=== PATIENT | female | born 1955 | race Caucasian/White ===

== ENCOUNTER → 2020-11-01 14:19 | Outpatient (CLI) | payer MEDICARE, MEDICAID, SELFPAY ==
[2020-11-01 14:31] LABS: Basophils # 0.1 K/mm3 (0-0.2); Basophils % 0.5 % (0.1-2.0); Eosinophils # 0.2 K/mm3 (0.0-0.4); Eosinophils % 1.6 % (0.1-12.0); Hemoglobin 11.5 g/dL (12.2-16.2); Lymphocytes # 1.7 K/mm3 (0.7-4.5); Mean Corpuscular HGB Conc 31.2 g/dL (31.8-35.4); Mean Corpuscular Hemoglobin 26.7 pg (27.0-31.2); Mean Corpuscular Volume 85.6 fl (81-99); Mean Platelet Volume 9.4 fl (7.4-10.4); Monocytes # 0.5 K/mm3 (0.1-1.0); Monocytes % 4.9 % (1.7-9.3); Platelet Count 402 K/mm3 (142-424); Red Blood Count 4.32 M/mm3 (4.20-5.40); Red Cell Distribution Width 15.8 % (11.5-17.5); White Blood Count 10.4 K/mm3 (4.8-10.8)
[2020-11-01 14:54] LABS: Chloride 101 mmol/L (98-107); Potassium 5.2 mmoL/L (3.5-5.1); Sodium 141 mmol/L (136-145)
[2020-11-01 14:56] LABS: Alanine Aminotransferase 21 U/L (12-78); Aspartate Amino Transferase 24 U/L (14-36); Blood Urea Nitrogen 22 mg/dl (7-17); Estimated Glomerular Filt Rate 101 ml/min (>60); GFR (African American) 122 ML/MIN (>60)
[2020-11-01 14:57] LABS: Albumin Level 4.3 g/dl (3.5-5.0); Albumin/Globulin Ratio 1.3 (1.1-1.8); Alkaline Phosphatase 158 U/L (38-126); Anion Gap 14.2 mEq/L (5-15); Bilirubin,Total 0.3 mg/dl (0.2-1.3); Calcium 9.9 mg/dl (8.4-10.2); Carbon Dioxide 31 mmol/L (22.0-30.0); Chol/HDL Ratio 4.1 (1-3.5); Cholesterol 228 mg/dl (140-200); Globulin 3.2 g/dL (1.3-3.2); Glucose 117 mg/dl (74-100); HDL Cholesterol 56 mg/dl (40-60); Total Protein,Serum 7.5 g/dl (6.3-8.2); Triglycerides 308 mg/dl (30-150); VLDL Cholesterol 62 mg/dL (0-40)
[2020-11-01 15:05] LABS: C-Reactive Protein 59.2 mg/L (0-4); Erythrocyte Sedimentation Rate 73 mm/hr (0-30)
[2020-11-01 15:09] LABS: Direct LDL Cholesterol 113.97 mg/dL (100-129)
[2020-11-01 15:17] LABS: T4 (Thyroxine) 9.3 ug/dl (5.53-11.0)
[2020-11-01 15:29] LABS: Thyroid Stimulating Hormone 0.58 uIU/mL (0.465-4.68)
[2020-11-05 00:05] LABS: Anti-Centromere B Antibodies <0.2 AI (0.0-0.9); Anti-Jo-1 <0.2 AI (0.0-0.9); Anti-Smith Antibody <0.2 AI (0.0-0.9); Antichromatin Antibodies <0.2 AI (0.0-0.9); Antiscleroderma-70 Antibodies <0.2 AI (0.0-0.9); RNP Antibodies <0.2 AI (0.0-0.9); Sjogren's Anti-SS-A <0.2 AI (0.0-0.9); Sjogren's Anti-SS-B <0.2 AI (0.0-0.9)
[2020-11-05 15:26] LABS: Anti-DNA (DS) Ab Qn <1 IU/mL (0-9)
== END ==
PROVIDERS: Visit Provider Family Medicine
DX: F39 Unspecified mood [affective] disorder (principal); M15.4 Erosive (osteo)arthritis; E78.5 Hyperlipidemia, unspecified
CPT/HCPCS: 80053; 80061; 84436; 84443; 85025; 85651; 86140; 86225; 86235

== ENCOUNTER → 2021-10-03 16:00 | Outpatient (CLI) | payer MEDICARE, MEDICAID, SELFPAY ==
[2021-10-03 14:02] LABS: Basophils # 0.1 K/mm3 (0-0.2); Basophils % 1.1 % (0.1-2.0); Eosinophils # 0.1 K/mm3 (0.0-0.4); Eosinophils % 0.7 % (0.1-12.0); Hematocrit 44.3 % (37.0-47.0); Hemoglobin 13.8 g/dL (12.2-16.2); Lymphocytes # 2.2 K/mm3 (0.7-4.5); Lymphocytes % 20.4 % (10-50); Mean Corpuscular HGB Conc 31.1 g/dL (31.8-35.4); Mean Corpuscular Hemoglobin 28.2 pg (27.0-31.2); Mean Corpuscular Volume 90.5 fl (81-99); Mean Platelet Volume 10.1 fl (7.4-10.4); Monocytes # 0.6 K/mm3 (0.1-1.0); Monocytes % 5.8 % (1.7-9.3); Neutrophils # 7.7 K/mm3 (1.8-7.8); Platelet Count 494 K/mm3 (142-424); Red Blood Count 4.89 M/mm3 (4.20-5.40); Red Cell Distribution Width 15.6 % (11.5-17.5); White Blood Count 10.7 K/mm3 (4.8-10.8)
[2021-10-03 14:46] LABS: Anion Gap 16.9 mEq/L (5-15); Blood Urea Nitrogen 21 mg/dl (7-17); Calcium 10.2 mg/dl (8.4-10.2); Carbon Dioxide 28 mmol/L (22.0-30.0); Chloride 99 mmol/L (98-107); Chol/HDL Ratio 5.3 (1-3.5); Cholesterol 304 mg/dl (140-200); Estimated Glomerular Filt Rate 124 ml/min (>60); GFR (African American) 150 ML/MIN (>60); Glucose 126 mg/dl (74-100); HDL Cholesterol 57 mg/dl (40-60); Potassium 4.9 mmoL/L (3.5-5.1); Sodium 139 mmol/L (136-145); Triglycerides 278 mg/dl (30-150); VLDL Cholesterol 56 mg/dL (0-40)
[2021-10-03 14:56] LABS: Direct LDL Cholesterol 196.05 mg/dL (100-129)
== END ==
PROVIDERS: Visit Provider Family Medicine
DX: E78.5 Hyperlipidemia, unspecified (principal); F39 Unspecified mood [affective] disorder
CPT/HCPCS: 80048; 80061; 85025

== ENCOUNTER → 2022-09-04 09:00 | Outpatient (CLI) | payer MEDICARE, MEDICAID, SELFPAY ==
[2022-09-04 15:20] LABS: Basophils # 0.1 K/mm3 (0-0.2); Basophils % 0.6 % (0.1-2.0); Eosinophils # 0.1 K/mm3 (0.0-0.4); Hematocrit 40.7 % (37.0-47.0); Lymphocytes # 1.5 K/mm3 (0.7-4.5); Lymphocytes % 13.6 % (10-50); Mean Corpuscular HGB Conc 29.6 g/dL (31.8-35.4); Mean Corpuscular Hemoglobin 26.1 pg (27.0-31.2); Mean Corpuscular Volume 88.2 fl (81-99); Mean Platelet Volume 10.1 fl (7.4-10.4); Monocytes # 0.7 K/mm3 (0.1-1.0); Monocytes % 5.8 % (1.7-9.3); Platelet Count 445 K/mm3 (142-424); Red Blood Count 4.61 M/mm3 (4.20-5.40); Red Cell Distribution Width 16.9 % (11.5-17.5); White Blood Count 11.4 K/mm3 (4.8-10.8)
[2022-09-04 15:34] LABS: Chloride 100 mmol/L (98-107); Potassium 4.5 mmoL/L (3.5-5.1); Sodium 140 mmol/L (136-145)
[2022-09-04 15:37] LABS: Alanine Aminotransferase 21 U/L (12-78); Albumin Level 4.1 g/dl (3.5-5.0); Albumin/Globulin Ratio 1.3 (1.1-1.8); Alkaline Phosphatase 145 U/L (38-126); Anion Gap 15.5 mEq/L (5-15); Aspartate Amino Transferase 24 U/L (14-36); Bilirubin,Total 0.4 mg/dl (0.2-1.3); Blood Urea Nitrogen 15 mg/dl (7-17); Carbon Dioxide 29 mmol/L (22.0-30.0); Cholesterol 208 mg/dl (140-200); Estimated Glomerular Filt Rate 124 ml/min (>60); GFR (African American) 150 ML/MIN (>60); Globulin 3.2 g/dL (1.3-3.2); Total Protein,Serum 7.3 g/dl (6.3-8.2); Triglycerides 215 mg/dl (30-150); VLDL Cholesterol 43 mg/dL (0-40)
[2022-09-04 15:38] LABS: Calcium 9.4 mg/dl (8.4-10.2); Chol/HDL Ratio 4.5 (1-3.5); Glucose 119 mg/dl (74-100); HDL Cholesterol 46 mg/dl (40-60)
[2022-09-04 15:50] LABS: Direct LDL Cholesterol 101.27 mg/dL (100-129)
[2022-09-04 15:53] LABS: 25-OH Vitamin D, Total 17.5 ng/mL (30-100)
[2022-09-04 16:08] LABS: Thyroid Stimulating Hormone 0.68 uIU/mL (0.465-4.68)
[2022-09-04 16:10] LABS: Hemoglobin A1C 6.3 % (4.0-6.0)
== END ==
PROVIDERS: PCP Family Medicine; Visit Provider Family Medicine
DX: I10 Essential (primary) hypertension (principal); E78.5 Hyperlipidemia, unspecified; E55.9 Vitamin D deficiency, unspecified; R73.09 Other abnormal glucose
CPT/HCPCS: 80053; 80061; 82306; 83036; 84443; 85025

== ENCOUNTER → 2023-07-13 08:32 | Outpatient (CLI) | payer MEDICARE, MEDICAID, SELFPAY ==
[2023-07-13 20:12] LABS: Chloride 104 mmol/L (98-107); Potassium 4.7 mmoL/L (3.5-5.1); Sodium 139 mmol/L (136-145)
[2023-07-13 20:14] LABS: Blood Urea Nitrogen 19 mg/dl (7-17)
[2023-07-13 20:15] LABS: Alanine Aminotransferase 27 U/L (12-78); Albumin Level 4.7 g/dl (3.5-5.0); Albumin/Globulin Ratio 1.3 (1.1-1.8); Alkaline Phosphatase 163 U/L (38-126); Anion Gap 15.7 mEq/L (5-15); Aspartate Amino Transferase 32 U/L (14-36); Bilirubin,Total 0.3 mg/dl (0.2-1.3); Carbon Dioxide 24 mmol/L (22.0-30.0); Estimated Glomerular Filt Rate 100 ml/min (>60); GFR (African American) 121 ML/MIN (>60); Globulin 3.5 g/dL (1.3-3.2); Total Protein,Serum 8.2 g/dl (6.3-8.2)
[2023-07-13 20:16] LABS: Calcium 9.7 mg/dl (8.4-10.2); Glucose 108 mg/dl (74-100)
[2023-07-13 20:45] LABS: Thyroid Stimulating Hormone 0.65 uIU/mL (0.465-4.68)
[2023-07-13 21:11] LABS: Hemoglobin A1C 6.1 % (4.0-6.0)
== END ==
PROVIDERS: PCP Family Medicine; Visit Provider Family Medicine
DX: E11.9 Type 2 diabetes mellitus without complications (principal); G89.29 Other chronic pain; M54.9 Dorsalgia, unspecified
CPT/HCPCS: 80053; 83036; 84443

== ENCOUNTER 2024-12-29 01:22 | Outpatient (CLI) | payer MEDICARE, SELFPAY ==
[2024-12-29 18:50] LABS: Basophils # 0.1 K/mm3 (0-0.2); Basophils % 0.5 % (0.1-2.0); Eosinophils # 0.3 Kmm3 (0.0-0.4); Eosinophils % 2.8 % (0.1-12.0); Hematocrit 38.1 % (37.0-47.0); Immature Granulocytes # 0.02 10^3uL; Immature Granulocytes % 0.2 %; Lymphocytes # 2.3 K/mm3 (0.7-4.5); Lymphocytes % 24.1 % (10-50); Mean Corpuscular HGB Conc 28.9 g/dL (31.8-35.4); Mean Corpuscular Hemoglobin 26.3 pg (27.0-31.2); Mean Corpuscular Volume 90.9 fl (81-99); Mean Platelet Volume 10.8 fl (7.4-10.4); Monocytes # 0.6 K/mm3 (0.1-1.0); Monocytes % 6.2 % (1.7-9.3); Neutrophils # 6.2 K/mm3 (1.8-7.8); Neutrophils % 66.2 % (37.0-80.0); Nucleated Red Blood Cells # 0 10^3/uL; Nucleated Red Blood Cells % 0 %; Platelet Count 455 K/mm3 (142-424); Red Blood Count 4.19 M/mm3 (4.20-5.40); Red Cell Distribution Width 15.9 % (11.5-17.5); Red Cell Distribution Width-SD 52.6 fL; White Blood Count 9.3 K/mm3 (4.8-10.8)
[2024-12-29 19:22] LABS: Alanine Aminotransferase 15 U/L (12-78); Albumin Level 4.2 g/dl (3.5-5.0); Albumin/Globulin Ratio 1.6 (1.1-1.8); Alkaline Phosphatase 120 U/L (38-126); Anion Gap 10.3 mEq/L (5-15); Aspartate Amino Transferase 18 U/L (14-36); Bilirubin,Total 0.2 mg/dl (0.2-1.3); Blood Urea Nitrogen 33 mg/dl (7-17); Calcium 9.4 mg/dl (8.4-10.2); Carbon Dioxide 27 mmol/L (22.0-30.0); Chloride 106 mmol/L (98-107); Chol/HDL Ratio 3.6 (1-3.5); Cholesterol 151 mg/dl (140-200); Estimated Glomerular Filt Rate 49 ml/min (>60); GFR (African American) 60 ML/MIN (>60); Globulin 2.7 g/dL (1.3-3.2); Glucose 102 mg/dl (74-100); HDL Cholesterol 42 mg/dl (40-60); Potassium 4.3 mmoL/L (3.5-5.1); Sodium 139 mmol/L (136-145); Total Protein,Serum 6.9 g/dl (6.3-8.2); Triglycerides 175 mg/dl (30-150); VLDL Cholesterol 35 mg/dL (0-40)
[2024-12-29 19:35] LABS: Direct LDL Cholesterol 75.64 mg/dL (100-129)
[2024-12-29 20:10] LABS: HIV Combo NEGATIVE (Negative)
[2024-12-29 20:13] LABS: Hepatitis C Ab Qual. W/ RFX NEGATIVE (Negative)
== END 2024-12-29 23:59 | disposition home or self-care (01) ==
LOC: LAB.DROPOF 12-30 12:59
PROVIDERS: PCP Family Medicine; Visit Provider Family Medicine
DX: E78.5 Hyperlipidemia, unspecified (principal); I10 Essential (primary) hypertension; Z11.4 Encounter for screening for human immunodeficiency virus [HIV]; Z11.59 Encounter for screening for other viral diseases
CPT/HCPCS: 80053; 80061; 84443; 85025; 86803; 87389

== ENCOUNTER 2025-03-01 11:02 | Outpatient (CLI) | payer MEDICARE, SELFPAY ==
[2025-03-01 22:13] LABS: Hemoglobin A1C 6.7 % (4.0-6.0)
--- OUTSIDE RECORDS SUMMARY | 2025-03-02 12:51 | XMS_ITS | Encounter Summary ---
Author Organization [employer] ([place], [place], [place], [place]) Address [address] [place] [address] Care Team Providers Care Cement Finishing Supervisor Name Role Phone Buck Torres MD Primary Care Provider [phone] Encounter Details Date Type Department Care Team (Late st Contact Info) Description 02/02/2023 Outside Orders [facility] [place] Admitting [address] [place] [address] Flex Rodriguez MD [address] [place], [place] [id number] History of total knee replacement, bilateral (Primary Dx) Social History Tobacco Use Types Packs/Day Years Used Date Smoking Tobacco: Never Passive Smoke Exposure: Never Smokeless Tobacco: Never Alcohol Use Standard Drinks/Week Comments Never 0 (1 standard drink = 0.6 oz pur e alcohol) Comments Unknown Sex and Gender Information Value Date Recorded Sex Assigned at Not on file Legal Sex Female 10:57 AM CDT Gender Identity Not on file Sexual Orientation Not on file COVID-19 Exposure Response Date Recorded In the last 10 days, have yo u been in contact with someone who was confirmed or suspected to have Coronavirus/COVID-19? No / Unsure 02/02/2023 4:10 PM EDT documented as of this encounter Plan of Treatment Not on file documented as of this encounter Results * (ABNORMAL) D-dimer (02/02/2023 4:24 PM EDT) D-Dimer, Quant ([facility]) 3,428.85( H) <=500.00 ng/mL FEU 02/02/2023 5:07 PM EDT [facility] Comment: A normal D-dimer result <500 ng/mL (FEU) has a negative predictive value of approximately 95% for the exclusion of acute pulmonary embolism (PE) or deep vein thrombosis when there is low or moderate pretest PE probability. D-dimer Normal Rates First trimester: 50-950 ng/mL (FEU) Second trimester: 302-1290 ng/mL (FEU) Third trimester: 130-1700 ng/mL (FEU) Blood Venipuncture / Unknown 02/02/2023 4:24 PM EDT 02/02/2023 4:24 PM EDT Flex Rodriguez MD LAB BLOOD ORDERABLES Final Re sult Performing Organization Address [facility] Co de Phone Number [facility] [address] [place] [address] * (ABNORMAL) C-Reactive Protein (02/02/2023 4:24 PM EDT) CRP 5.80(H) 0.20 - 0.90 mg/dL 02/02/2023 4:52 PM EDT [facility] Blood Venipuncture / Unknown 02/02/2023 4:24 PM EDT 02/02/2023 4:24 PM EDT Flex Rodriguez MD LAB BLOOD ORDERABLES Final Re sult Performing Organization Address City/[facility]/ZIP Co de Phone Number [facility] [address] [phone] * (ABNORMAL) Sedimentation rate (02/02/2023 4:24 PM EDT) Sed Rate 98(H) 0 - 30 mm/HR 02/02/2023 6:37 PM EDT [facility] Hematocrit 37.7 35.0 - 47.0 % 02/02/2023 6:37 PM EDT [facility] Blood Venipuncture / Unknown 02/02/2023 4:24 PM EDT 02/02/2023 4:24 PM EDT us Flex Rodirguez MD LAB BLOOD ORDERABLES Final Re sult [facility] [address] [place] [address], [facility] [phone] documented in this encounter Visit Diagnoses Diagnosis History of total knee replacement, bilateral- Primary documented in this encounter Care Teams Cement Finishing Supervisor Relationship Specialty Start Date End Date Buck Torres MD [address] [place] [address] PCP - General Family Medicine 01/23/23 documented as of this encounter
--- OUTSIDE RECORDS SUMMARY | 2025-03-02 12:51 | XMS_ITS | Clinical Summary ---
Author Organization [employer] ([place], [place], [place], [place]) Address [address] [place] [address] Care Team Providers Care Tonnage Compilation Clerk Name Role Phone Buck Torres MD Primary Care Provider [phone] Allergies Active Allergy Reactions Criticality Noted Date Comments Cilastatin 02/02/2023 Febuxostat 02/02/2023 Lamotrigine 02/02/2023 Medications ALPRAZolam (XANAX) 0.5 MG tablet Take 1 tablet (0.5 mg total) by mouth 3 (three) times daily as needed. Max Daily Amount: 1.5 mg 3 Active amLODIPine (NORVASC) 5 MG tablet Take 1 tablet (5 mg total) by mouth in the morning. 3 Active cyclobenzaprine (FLEXERIL) 10 MG tablet Take 1 tablet (10 mg total) by mouth. 3 Active dorzolamide-martha oloL (COSOPT) 22.3-6.8 mg/mL ophthalmic solution 1 drop in the morning and 1 drop before bedtime. 3 Active HYDROcodone-sita taminophen (NORCO 7.5-325) 7.5-325 mg per tablet Take 1 tablet by mouth every 8 (eight) hours as needed. Max Daily Amount: 3 tablets 3 Active lisinopriL (PRINIVIL,ZESTR IL) 40 MG tablet Take 1 tablet (40 mg total) by mouth in the morning. 3 Active Livalo 4 mg Tab Take by mouth daily. 3 Active venlafaxine (EFFEXOR-XR) 150 MG 24 hr capsule Take 1 capsule (150 mg total) by mouth in the morning. 3 Active Ventolin HFA 90 mcg/actuation inhaler 2 puffs every 4 (four) hours as needed. 3 Active fluticasone-ume clidin-vilanter (Trelegy Ellipta) 200-62.5-25 mcg DsDv Trelegy Ellipta 200 mcg-62.5 mcg-25 mcg powder for inhalation INHALE ONE (1) INHALATION EVERY DAY Active Family History Medical History Relation Name Comments High blood pressure Other Osteoporosis Other Relation Name Status Comments Other Social History Tobacco Use Types Packs/Day Years Used Date Smoking Tobacco: Never Passive Smoke Exposure: Never Smokeless Tobacco: Never Tobacco Cessation:Counseling Given: Not Answered Alcohol Use Standard Drinks/Week Comments Never 0 (1 standard drink = 0.6 oz pur e alcohol) Food Insecurity Answer Date Recorded Food run out past 12 months Not on file 08/25 Food did not last past 12 months Not on file 09/12/2023 Employment Answer Date Recorded Help finding and keeping a job Not on file 0 09/12/2023 Family and Community Support Answer Elijah e Recorded Help with Day to Day Activities Not on file 09/12/2023 Feeling Lonely or Isolated Not on file 09/12 Educational Attainment Answer Date Gal rded Speak language other than Icelandic at home Not on file 09/12/2023 Want help with school or training Not on file 09/12/2023 Substance Use Answer Date Recorded Used prescription meds for non-medical reasons N ot on file 09/12/2023 Used illegal drugs past 12 months Not on file 09/12/2023 Comments Unknown Sex and Gender Information Value Date Recorded Sex Assigned at Not on file Legal Sex Female 10:57 AM CDT Gender Identity Not on file Sexual Orientation Not on file Last Filed Vital Signs Vital Sign Reading Time Taken Comments Blood Pressure 118/79 02/02/2023 2:35 PM EDT Pulse 111 02/02/2023 2:35 PM EDT Temperature - - Respiratory Rate - - Oxygen Saturation - - Inhaled Oxygen Concentration - - Weight 89.4 kg (197 lb) 02/02/2023 2:35 PM EDT Height 154.9 cm (5' 1 ) 02/02/2023 2:35 PM EDT Body Mass Index 37.22 02/02/2023 2:35 PM EDT Plan of Treatment Health Maintenance Due Date Last Done Comments CT Colonography 1956 Colonoscopy 1956 Colorectal Cancer Screening 1956 DXA SCAN 1956 FOBT/FIT 1956 Fit-DNA (Cologuard) 1956 Sigmoidoscopy 1956 Depression Screening (12+) 1968 Hepatitis C Screening 1974 Breast Cancer Screening 1996 Shingles Vaccine (Zoster) (1 of 2) 2006 DTAP/TDAP/TD VACCINES (2 - T d or Tdap) 06/24/2014 06/24/2004 Medicare Initial AWV [id number] 08/25/2022 Pneumococcal 50+ years (2 of 2 - PCV) 05/15/2023 05/15/2022, 07/12/2020 Tobacco Cessation Counseling and Screening (12+) 02/03/2024 02/02/2023 COVID-19 VACCINE (5 - 2023-2 5 season) 2024 12/13/2021, 06/30/2021, 10/08/2020, Additional history exists Falls Risk Screening 08/24/2024 Influenza Vaccine (#1) 2025 Respiratory Syncytial Virus (RSV) Adult or (1 - 1-dose 75+ series) 12/15/2031 [facility] Care Teams Tonnage Compilation Clerk Relationship Specialty Start Date End Date Buck Torres MD [address] [place] [address] PCP - General Family Medicine 01/23/23
--- OUTSIDE RECORDS SUMMARY | 2025-03-02 12:51 | XMS_ITS | Data Portability ---
Author Organization [facility] Address [address] [place] [address] Assessment Encounter Date Assessment Date Assessment LastModified by Organization Details LastModified Time 03/10/2019 03/10/2019 *Pain Shot: Dr. [facility] [phone] [email or web address] Not available 03/10/2019 11:04:04 Plan of Treatment Reminders Order Date Submit Date Provider Last Modified By Organization Details Last Modified Time Details Appointments None recorded. Lab CBC w/ auto diff 2019 020 DWIGHT [facility], [address], [place] [address], [place], [address], 0 05:01:06 HbA1c (hemoglob in A1c), blood 2019 020 DWIGHT [facility], [address], [place] [address], [place], [address], 0 05:01:04 lipid panel, serum 2019 020 DWIGHT [facility], [address], [place] [address], [place], [address], 0 05:01:04 rf (rheumato id factor), serum 2018 019 [email or web address] [facility], [address], [place], [place], [address], 9 08:04:08 CBC w/ auto diff 2018 019 HAMEL [facility], [address], [place] [address], [place], [address], 9 15:08:04 C reactive protein, QN, serum or plasma 2018 019 [email or web address] [facility], [address], [place] [address], [place], [address], 9 08:04:08 unlisted lab - ESR luz+LLOYD+r f qn+CRP+cc p(I...-33 [id number] 2018 019 HAMEL [facility], [address], [place] [address], [place], [address], 9 15:08:03 BMP, serum or plasma 2018 019 HAMEL [facility], [address], [place], [place], [address], 9 15:08:04 LLOYD (antinucl ear antibodie s) titer + pattern, ifa, serum 2018 019 HAMEL [facility], [address], [place], [place], [address], 9 15:08:06 PT/PTT, plasma 2018 019 [facility], [address], [place], [place], [address], 9 15:08:05 ccp (cyclic citrullin ated peptide) iga+igg, serum 2018 019 [place] [address] [facility], [address], [place], [place], [address], 9 08:04:08 Referral pain managemen t referral - Takes Hydrocodo ne/Acetam inophen for pain. Has been seeing Dr. torres, traveling is too far. Wants a provider closer to home. [facility], [address], [place] [address], [place], [address], 4 10:38:33 orthopedi c referral 2019 020 DWIGHT [facility], [address] , [place], [address], 0 16:12:42 Procedures None recorded. Surgeries None recorded. Imaging XR, lumbar spine 2019 020 DWIGHT [facility] (Centralized Scheduling), [address], [place], [address], 0 14:46:00 XR, knee, 3 view 2019 020 DWIGHT [facility] (Centralized Scheduling), [address], [place], [address], 0 14:45:17 XR, wrist, 3 or more view 2019 020 DWIGHT Chapman (Centralized Scheduling), [address], [place], [address], 0 14:44:13 XR, hand, 3 or more view 2019 020 DWIGHT Chapman (Centralized Scheduling), [address], [place], [address], 0 14:43:48 Medication Orders Tylenol-C odeine #4 300 mg-60 mg tablet 2018 [address], [address], 0 21:27:53 Soma 350 mg tablet [address], [address], 0 13:10:23 alprazola m 1 mg tablet 2018 [email or web address], [address], 0 21:27:40 ketorolac 60 mg/2 mL intramusc ular solution 2018 019 [email or web address] Not available 0 21:28:59 hydrocodo ne 10 mg-acetam inophen 325 mg tablet [address], [address], 0 13:07:39 alprazola m 1 mg tablet 2018 [address], [address], 0 21:27:40 alprazola m 1 mg tablet 2018 [address], [address], 0 21:27:40 hydrocodo ne 10 mg-acetam inophen 325 mg tablet [address], [address], 0 13:07:39 Patient TargetsNo targets recorded. Patient Instructions Encounter Date Encounter Id Patient Instructions Last Modified By Organization Details Last Modified Time 03/18/2024 [id number] learning about healthy weight Not available 03/18/2024 13:28:20 body mass index: care instructions Not available 03/18/2024 13:28:20 medical record request* [email or web address] Not available 07/08/2024 14:11:33 If you have any questions or concerns, call pp or seek medical attention. Not available 03/18/2024 13:40:09 Reason for Referral Orthopedic Referral for Knee pain Bilateral knee pain. Hx of bilateral arthroplasty. XRS showed bilaterak knee effusions. Referring Physician: Eric Thakur, [facility], Encounter Date: 12/15/2019 Pain Management Referral for Chronic pain Takes Hydrocodone/Acetaminophen for pain. Has been seeing Dr. torres, traveling is too far. Wants a provider closer to home. Referring Physician: Ni Farah, [facility], Encounter Date: 03/18/2024 Results Created Date Observation Date Name Description Value Unit Range Abnormal Flag Note LastModifiedBy Organization Detail LastModifiedTime 02/12/20 19 02/12/2019 infla mmati on panel , serum or plasm a RA latex turbid. <10.0 IU/mL 0.0-13 .9 Not Available [facility] ([facility]) [address] [place], [address], 02/14/2019 15:08:03 02/12/20 19 02/12/2019 infla mmati on panel , serum or plasm a C-reactive protein, quant 3 mg/L 0-10 Ple ase note refer ence inter chip lozoya e Not Available [facility] ([facility]) [address] [place], [address], 02/14/2019 15:08:03 02/12/20 19 02/12/2019 infla mmati on panel , serum or plasm a sedimentatio n rate-westerg bhavya 63 mm/HR 0-40 above high normal Not Available [facility] ([facility]) [address] [place], [address], 02/14/2019 15:08:03 02/12/20 19 02/13/2019 infla mmati on panel , serum or plasm a ccp antibodies IgG/IgA 4 units 0-19 Negat john <20 Weak posit john 20 - 39 Moder ate posit john 40 - 59 Stron g posit john >59 Not Available [facility] ([facility]) [address] [place], [address], 02/14/2019 15:08:03 02/12/20 19 02/14/2019 infla mmati on panel , serum or plasm a LLOYD direct Negati ve negati ve Not Available [facility] ([facility]) [address] [place], [address], 02/14/2019 15:08:03 02/12/20 19 02/12/2019 CBC w/ auto diff WBC 11.0 x10e3 /uL 3.4-10 .8 above high normal Not Available [facility] ([facility]) [address] [facility], [place], [address], 02/14/2019 15:08:03 02/12/20 19 02/12/2019 CBC w/ auto diff RBC 5.11 x10e6 /uL 3.77-5 .28 Not Available [facility] ([facility]) [address] [place], [address], 02/14/2019 15:08:03 02/12/20 19 02/12/2019 CBC w/ auto diff hemoglobin 13.5 g/dL 11.1-1 5.9 Not Available [facility] ([facility]) [address] [place], [address], 02/14/2019 15:08:03 02/12/20 19 02/12/2019 CBC w/ auto diff hematocrit 42.0 % 34.0-4 6.6 Not Available [facility] ([facility]) [address] [place], [address], 02/14/2019 15:08:03 02/12/20 19 02/12/2019 CBC w/ auto diff MCV 82 fL 79-97 Not Available [facility] ([facility]) [address] [place], [address], 02/14/2019 15:08:03 02/12/20 19 02/12/2019 CBC w/ auto diff MCH 26.4 pg 26.6-3 3.0 below low normal Not Available [facility] ([facility]) [address] [facility], [place], [address], 02/14/2019 15:08:03 02/12/20 19 02/12/2019 CBC w/ auto diff MCHC 32.1 g/dL 31.5-3 5.7 Not Available [facility] ([facility]) [address] [facility], [place], [address], 02/14/2019 15:08:03 02/12/20 19 02/12/2019 CBC w/ auto diff RDW 15.0 % 12.3-1 5.4 Not Available [facility] ([facility]) [address] [facility], [place], [address], 02/14/2019 15:08:03 02/12/20 19 02/12/2019 CBC w/ auto diff platelets 449 x10e3 /uL 150-45 0 Not Available [facility] ([facility]) [address] [place], [address], 02/14/2019 15:08:03 02/12/20 19 02/12/2019 CBC w/ auto diff neutrophils 85 % not estab. Not Available [facility] ([facility]) [address] [facility], [place], [address], 02/14/2019 15:08:03 02/12/20 19 02/12/2019 CBC w/ auto diff lymphs 13 % not estab. Not Available [facility] ([facility]) [address] [place], [address], 02/14/2019 15:08:03 02/12/20 19 02/12/2019 CBC w/ auto diff monocytes 2 % not estab. Not Available [facility] ([facility]) [address] [place], [address], 02/14/2019 15:08:03 02/12/20 19 02/12/2019 CBC w/ auto diff eos 0 % not estab. Not Available [facility] ([facility]) [address] [place], [address], 02/14/2019 15:08:03 02/12/20 19 02/12/2019 CBC w/ auto diff basos 0 % not estab. Not Available [facility] ([facility]) [address] [place], [address], 02/14/2019 15:08:03 02/12/20 19 02/12/2019 CBC w/ auto diff immature cells ONLINE TRADER Not Available [facility] ([facility]) [address] [place], [address], 02/14/2019 15:08:03 02/12/20 19 02/12/2019 CBC w/ auto diff neutrophils (absolute) 9.3 x10e3 /uL 1.4-7. 0 above high normal Not Available [facility] ([facility]) [address] [place], [address], 02/14/2019 15:08:03 02/12/20 19 02/12/2019 CBC w/ auto diff lymphs (absolute) 1.4 x10e3 /uL 0.7-3. 1 Not Available [facility] ([facility]) [address] [place], [address], 02/14/2019 15:08:03 02/12/20 19 02/12/2019 CBC w/ auto diff monocytes(ab solute) 0.2 x10e3 /uL 0.1-0. 9 Not Available [facility] ([facility]) [address] [place], [address], 02/14/2019 15:08:03 02/12/20 19 02/12/2019 CBC w/ auto diff eos (absolute) 0.0 x10e3 /uL 0.0-0. 4 Not Available [facility] ([facility]) [address] [facility], [place], [address], 02/14/2019 15:08:03 02/12/20 19 02/12/2019 CBC w/ auto diff baso (absolute) 0.0 x10e3 /uL 0.0-0. 2 Not Available [facility] ([facility]) [address] [place], [address], 02/14/2019 15:08:03 02/12/20 19 02/12/2019 CBC w/ auto diff immature granulocytes 0 % not estab. Not Available [facility] ([facility]) [address] [place], [address], 02/14/2019 15:08:03 02/12/20 19 02/12/2019 CBC w/ auto diff immature grans (abs) 0.0 x10e3 /uL 0.0-0. 1 Not Available [facility] ([facility]) [address] [place], [address], 02/14/2019 15:08:03 02/12/20 19 02/12/2019 CBC w/ auto diff NRBC ONLINE TRADER Not Available [facility] ([facility]) [address] [place], [address], 02/14/2019 15:08:03 02/12/20 19 02/12/2019 CBC w/ auto diff hematology comments: ONLINE TRADER Not Available [facility] ([facility]) [address] [place], [address], 02/14/2019 15:08:03 02/12/20 19 02/12/2019 BMP, serum or plasm a glucose 129 mg/dL 65-99 above high normal Not Available [facility] ([facility]) [address] [place], [address], 02/14/2019 15:08:04 02/12/20 19 02/12/2019 BMP, serum or plasm a BUN 22 mg/dL 8-27 Not Available [facility] ([facility]) [address] [place], [address], 02/14/2019 15:08:04 02/12/20 19 02/12/2019 BMP, serum or plasm a creatinine 0.64 mg/dL 0.57-1 .00 Not Available [facility] ([facility]) [address] [place], [address], 02/14/2019 15:08:04 02/12/20 19 02/12/2019 BMP, serum or plasm a eGFR if nonafricn AM 96 mL/mi n/1.7 3 >59 Not Available [facility] ([facility]) [address] [place], [address], 02/14/2019 15:08:04 02/12/20 19 02/12/2019 BMP, serum or plasm a eGFR if africn AM 111 mL/mi n/1.7 3 >59 Not Available [facility] ([facility]) [address] [place], [address], 02/14/2019 15:08:04 02/12/20 19 02/12/2019 BMP, serum or plasm a BUN/creatini ne ratio 34 12-28 above high normal Not Available [facility] ([facility]) [address] [place], [address], 02/14/2019 15:08:04 02/12/20 19 02/12/2019 BMP, serum or plasm a sodium 135 mmol/ L 134-14 4 Not Available [facility] ([facility]) [address] [place], [address], 02/14/2019 15:08:04 02/12/20 19 02/12/2019 BMP, serum or plasm a potassium 4.9 mmol/ L 3.5-5. 2 Not Available [facility] ([facility]) [address] [place], [address], 02/14/2019 15:08:04 02/12/20 19 02/12/2019 BMP, serum or plasm a chloride 96 mmol/ L 96-106 Not Available [facility] ([facility]) [address] [place], [address], 02/14/2019 15:08:04 02/12/20 19 02/12/2019 BMP, serum or plasm a carbon dioxide, total 21 mmol/ L 20-29 Not Available [facility] ([facility]) [address] [place], [address], 02/14/2019 15:08:04 02/12/20 19 02/12/2019 BMP, serum or plasm a calcium 10.4 mg/dL 8.7-10 .3 above high normal Not Available [facility] ([facility]) [address] [facility], [place], [address], 02/14/2019 15:08:04 02/12/20 19 02/12/2019 PT/PT T, plasm a INR 1.0 0.8-1. 2 Refer ence inter chip is for non-a ntico agula yoni patie nts. Sugge sted INR thera peuti c range for Vitam in K antag onist thera py: Stand yamilet Dose (mode rate inten sity thera peuti c range ): 2.0 - 3.0 Highe r inten sity thera peuti c range 2.5 - 3.5 Not Available [facility] ([facility]) [address] [facility], [place], [address], 02/14/2019 15:08:05 02/12/20 19 02/12/2019 PT/PT T, plasm a prothrombin time 10.4 sec 9.1-12 .0 Not Available [facility] ([facility]) [address] [place], [address], 02/14/2019 15:08:05 02/12/20 19 02/12/2019 PT/PT T, plasm a APTT 32 sec 24-33 This test has not been valid ated for monit oring unfra ction ated hepar in thera py. aPTT- based thera peuti c range s for unfra ction ated hepar in thera py have not been estab edilson real. For gener al guide lines on Hepar in monit oring , refer to the [facility] tory of Trudy brown. Not Available [facility] ([facility]) [address] [facility], [place], [address], 02/14/2019 15:08:05 02/12/20 19 02/14/2019 LLOYD (anti nucle ar antib odies ) titer + patte rn, ifa, serum antinuclear antibodies, ifa Positi ve abnormal Negat john <1:80 Borde rline 1:80 Posit john >1:80 Not Available [facility] ([facility]) [address] [facility], [place], [address], 02/14/2019 15:08:06 02/12/20 19 02/14/2019 LLOYD (anti nucle ar antib odies ) titer + patte rn, ifa, serum homogeneous pattern 1:160 above high normal Not Available [facility] ([facility]) [address] [place], [address], 02/14/2019 15:08:06 02/12/20 19 02/14/2019 LLOYD (anti nucle ar antib odies ) titer + patte rn, ifa, serum nucleolar pattern ONLINE TRADER Not Available [facility] ([facility]) [address] [place], [address], 02/14/2019 15:08:06 02/12/20 19 02/14/2019 LLOYD (anti nucle ar antib odies ) titer + patte rn, ifa, serum speckled pattern ONLINE TRADER Not Available [facility] ([facility]) [address] [place], [address], 02/14/2019 15:08:06 02/12/20 19 02/14/2019 LLOYD (anti nucle ar antib odies ) titer + patte rn, ifa, serum centromere pattern ONLINE TRADER Not Available [facility] ([facility]) [address] [facility], [place], [address], 02/14/2019 15:08:06 02/12/20 19 02/14/2019 LLOYD (anti nucle ar antib odies ) titer + patte rn, ifa, serum spindle apparatus pattern ONLINE TRADER Not Available [facility] ([facility]) [address] [facility], [place], [address], 02/14/2019 15:08:06 02/12/20 19 02/14/2019 LLOYD (anti nucle ar antib odies ) titer + patte rn, ifa, serum nuclear membrane pattern ONLINE TRADER Not Available [facility] ([facility]) [address] [facility], [place], [address], 02/14/2019 15:08:06 02/12/20 19 02/14/2019 LLOYD (anti nucle ar antib odies ) titer + patte rn, ifa, serum midbody pattern ONLINE TRADER Not Available [facility] ([facility]) [address] [facility], [place], [address], 02/14/2019 15:08:06 02/12/20 19 02/14/2019 LLOYD (anti nucle ar antib odies ) titer + patte rn, ifa, serum nuclear dot pattern ONLINE TRADER Not Available [facility] ([facility]) [address] [place], [address], 02/14/2019 15:08:06 02/12/20 19 02/14/2019 LLOYD (anti nucle ar antib odies ) titer + patte rn, ifa, serum pcna pattern ONLINE TRADER Not Available [facility] ([facility]) [address] [place], [address], 02/14/2019 15:08:06 02/12/20 19 02/14/2019 LLOYD (anti nucle ar antib odies ) titer + patte rn, ifa, serum centriole pattern ONLINE TRADER Not Available [facility] ([facility]) [address] [place], [address], 02/14/2019 15:08:06 02/12/20 19 02/14/2019 LLOYD (anti nucle ar antib odies ) titer + vicki valdovinos, ifa, serum note: Commen t A posit john LLOYD resul t may occur in healt hy indiv idual s (low titer ) or be assoc iated with a varie ty of disea ses. See inter preta tion chart which is not all inclu sive: Vicki valdovinos Antig en Detec yoni Sugge sted Disea se Assoc iatio n ----- ----- - ----- ----- ----- - ----- ----- ----- ----- ----- ---- Homog eneou s DNA(d s,ss) , SLE - High titer s Nucle osome s, Histo rei Drug- induc ed SLE ----- ----- - ----- ----- ----- - ----- ----- ----- ----- ----- ---- Speck led Sm, ASSISTANT OCEANOGRAPHER, SCL-7 0, SLE,M CTD,P SS (diff use form) , SS-A/ SS-B Sjogr ens ----- ----- - ----- ----- ----- - ----- ----- ----- ----- ----- ---- Nucle olar SCL-7 0, PM-1/ SCL High titer s Scler oderm a, PM/DM ----- ----- - ----- ----- ----- - ----- ----- ----- ----- ----- ---- Centr [facility] Centr [facility] PSS (limi yoni form) w/Cre st syndr ome varia ble ----- ----- - ----- ----- ----- - ----- ----- ----- ----- ----- ---- Nucle ar Dot Sp100 ,p80- coili n Prima ry Bilia ry Cirrh osis ----- ----- - ----- ----- ----- - ----- ----- ----- ----- ----- ---- Nucle ar GP210 , Prima ry Bilia ry Cirrh osis Membr ane ludy A,B,C ----- ----- - ----- ----- ----- - ----- ----- ----- ----- ----- ---- Not Available [facility] ([facility]) [address] [facility], [place], [address], 02/14/2019 15:08:06 12/15/19 20 XR, hand, 3 or more view No observ ation record ed. [address] [facility] [facility]) [facility] [address], [place], [address], 12/15/2019 16:56:47 12/15/19 20 XR, wrist , 3 or more view No observ ation record ed. [address] [facility]) [address], [place], [address], 12/15/2019 16:56:47 12/15/19 20 XR, knee, 3 view No observ ation record ed. [address] (Centralized Scheduling) [place], [address], 12/15/2019 16:56:47 12/15/19 20 XR, knee, 3 view No observ ation record ed. [address] (Centralized Scheduling) [address], [place], [address], 12/15/2019 16:56:47 12/15/19 20 XR, lumba r spine No observ ation record ed. [email or web address] Victor (Centralized Scheduling) [address] [place] [address], [place], [address], 12/15/2019 16:56:47 Result Notes None recorded. Problems Name Problem SNOMED Code Status Onset Date Resolution Date Notes Provider Name and Address Organization Details Recorded Time Chronic pain 66200537 Active 2017 Crystal Earlywine null, [place] - [facility] 9 16:20:50 Anxiety 56677786 Active 2017 Crystal Earlywine [place], [place] - [facility] 9 16:20:50 Hypertensiv e disorder 05369109 Active 2017 Crystal Earlywine null, [place] - [facility] 9 16:20:50 Hyperlipide eduardo 54352782 Active 2017 Crystal Earlywine null, [place] - [facility] 9 16:20:49 Cholelithia sis with obstruction 20435578 Active 2017 Crystal Earlywine null, [place] - [facility] 9 16:20:50 Long-term drug therapy Active 2017 Crystal Earlywine [place], [place] - [facility] 9 16:20:50 Diarrhea 08526603 Active 2018 Crystal Earlywine null, [place] - [facility] 9 16:20:50 History of cardiac catheteriza tion 1932582276934 0 Active Crystal Earlywine null, [place] - [facility] 9 16:20:50 Prediabetes 764286844 Active 2023 Ni Farah APRN [address], [place], [address] [facility] [place] - [facility] 4 13:36:44 Problem Notes Documentation Provider Name and Address Organization Details Recorded Time Electrical Cad Designer Consult Note : [address] [address] PATIENT NAME: PADMINI LEW UNIT NO.: [id number] ATTENDING DOC: Fernando SMITH, Power Mccray ROOM NO.: ADMISSION DATE: LOCATION[facility] BIRTH[facility] [birth year] ACCT NUM: [id number] DICTATED BY: Galo Her MD _ TEXT [facility] Specimen Number: [id number] [employer] Accession Number: [id number] Collection Date : 2022-03-18 Received Date : 2022-03-19 Reported Date : 2022-03-20 REPORT TITLE PATHOLOGY REPORT FINAL DIAGNOSIS A. ASCENDING COLON POLYP: -PORTIONS OF TUBULAR ADENOMA. -NEGATIVE FOR HIGH GRADE DYSPLASIA AND MALIGNANCY. B. TRANSVERSE COLON POLYPS (X2): -TUBULAR ADENOMAS. -NEGATIVE FOR HIGH GRADE DYSPLASIA AND MALIGNANCY. C. DESCENDING COLON POLYP: -TUBULAR ADENOMA. -NEGATIVE FOR HIGH GRADE DYSPLASIA AND MALIGNANCY. Pathologist Signature Galo Her M.D., Pathologist Electronic Signature : 2022-03-20 13:49 CLINICAL INFORMATION Preoperative Diagnosis: Surveillance. Postoperative Diagnosis: Diverticulosis, colonic polyps. Symptoms/Radiologic Findings: Procedure: SPECIMENS: A. Ascending colon polyp B. Transverse colon polyps x2 C. Descending colon polyp MICROSCOPIC EXAMINATION A., B., C. Sections show portions of tubular adenomas in which there is no evidence of high grade dysplasia and malignancy. Nondysplastic colonic mucosa is present. GROSS DESCRIPTION A. Received is a container of formalin labeled Lew, Padmini and ascending colon polyp containing LEW,PADMINI Kendrick [id number] PATHOLOGY REPORT Continu three yellow-fernando tissue fragments, up to 0.4 cm. The specimen is totally submitted between sponges in one cassette for levels. B. Received is a container of formalin labeled Lew, Padmini and transverse colon polyps x 2 are four irregular to polypoid portions of fernando mucosa ranging up to 0.8 x 0.5 x 0.2 cm, which are submitted in their entirety as labeled: block 1 three tissues in toto, block 2 one tissue trisected. C. Received is a container of formalin labeled Padmini Lew and descending colon polyp is a 0.4 cm fernando mucosal polyp and a 0.4 cm aggregate of possible white mucosa, which are submitted in toto in one cassette. MACEY Chapman.[facility] CPT CODES A) 24864 B) 53093 C) 09738 COPY TO [employer] PERFORMING SITE Agent [employer]. ASSUMES NO RESPONSIBILITY FOR THE ACCURACY OF CPT CODES PROVIDED WHICH ARE FOR INFORMATIONAL PURPOSES ONLY. CPT CODES ARE PAYOR SPECIFIC AND CPT CODING IS THE SOLE RESPONSIBILITY OF THE BILLING ENTITY. THE FOLLOWING TESTS (CD117,CMV,EBV LUIS,H.PYLORI, HEPATITIS B CORE AB, HEPATITIS B SURFACE AB, HHV-8, HSV 1 / 2, HER1, KAPPA LUIS, LAMBDA LUIS,PNEUMOCYSTIS,AND PROCOLLAGEN RUO) WERE DEVELOPED AND PERFORMANCE CHARACTERISTICS HAVE BEEN DETERMINED BY [employer] ([employer])[facility]. THEY HAVE NOT BEEN CLEARED OR APPROVED BY THE U.S. FOOD AND DRUG ADMINISTRATION. THE FDA HAS DETERMINED THAT SUCH CLEARANCE OR APPROVAL IS NOT NECESSARY. PERFORMANCE CHARACTERISTICS REFER TO THE ANALYTICAL PERFORMANCE OF THE TESTS. THE TECHNICAL COMPONENT AND GROSS DESCRIPTION IS PERFORMED AT [address] [facility]. THE PROFESSIONAL COMPONENT PERFORMED AT [address], [address] [address] at 1349 Signature on File Galo Her MD Dictated: 03/18/22 1200 Transcribed: Transcribed by: CYNDI BECERRA'ed Logic: Attending Provider: FERNANDO RAIN Referring Provider: FERNANDO RAIN Consulting Provider: JOSE CARLOS Kang - [facility] 04/01/2022 12:46:25 Emergency Department Note : TIMWNATACHA History Physical - Adult REPORT #: [id number] REPORT STATUS: Signed DATE: 10/07/22 TIME: 0451 PATIENT: PADMINI LEW UNIT #: [id number] ROOM/BED: ICU3-A AGE: 66 SEX: F ATTEND: Myron SMITH,Michael Gu ADM AUTHOR: Arya Blakely PA-C * ALL edits or amendments must be made on the electronic/computer document * History of Present Illness Date of Service: 10/07/22 Chief complaint: Cough and SOA. HPI: Ms. Lew is a 66 y/o female with a PMH of HTN/HLD, COPD-Asthma Overlap, Pre -Diabetes, Neuropathy, Anxiety/Depression, Gout, Chronic Pain (back/Knees), and Former Smoker who presented to the ED for Cough and SOA. She states for the past 1-2 days she is been having increased cough with light yellow sputum production. She has had some audible wheezing. She has also been short of breath with minimal exertion. She has also had a low-grade fever as high as 100.5 home but did not try anything for relief. She denies any chills, diaphoresis, hemoptysis, chest pain, abdominal pain, dysuria, or lower extremity edema. She is on inhaled Symbicort/Dulera (alternating) at home but not on any type of rescue inhaler. In the ED, her chest x-ray showed what appears to be a possible left lower lobe infiltrate versus pleural effusion with right lower lobe atelectasis per my interpretation. Her EKG per my interpretation with sinus tachycardia with heart rate of [address] changes. Her white blood cell count is 13.3, lactic acid 1.6, blood cultures x2 pending, BUN/ creatinine 12/0.70, ABG on 4 L nasal cannula with pH of 7.38, pCO2 54.1, PO2 of 67, bicarb of 32. Her COVID-19 and influenza testing were both negative. She has had breathing treatments and Rocephin in the ED. hospitalist team was asked for admission. External documents including ER labs, documents, images were personally reviewed : - CXR per my read shows left lower lobe infiltrate versus a left lower lobe pleural effusion and right lower lobe atelectasis. - EKG per my read with sinus tachycardia with heart rate 140 beats per minute with no apparent ST changes. Medications: Home Medications: Medication Dose/Rte/Freq Days Qty Entered Last Max Daily Dose Reviewed LATANOPROST 1 DROP OP HS 08/15/13 (XALATAN EYE DROPS) 1255 Strength: 2.5 ML BOTTLE CYANOCOBALAMIN 2,500 MCG SL DAILY 08/15/13 (VITAMIN B-12 ) 1258 Strength: 2,500 MCG TAB.SUBL METHYLCELLULOSE 500 MG PO D 08/15/13 (CITRUCEL) 1258 Strength: 500 MG TABLET CHOLECALCIFEROL 1,000 UNITS PO DAILY 08/15/13 (VITAMIN D3) 1259 (VITAMIN D) Strength: 1,000 UNIT TAB OMEPRAZOLE 20 MG PO HS 08/15/13 Strength: 20 MG 1259 CAPSULE. ALPRAZolam (XANAX) 0.5 MG PO BID 08/15/13 Strength: 0.5 MG TABLET 1252 amLODIPine BESYLATE 5 MG PO HS 08/15/13 (NORVASC) 1252 Strength: 10 MG TABLET LISINOPRIL 40 MG PO HS 08/15/13 Strength: 40 MG TABLET 1253 Hydrocodone/Acetaminophen 1 TAB PO 03/17/22 (Hydrocodone-Acetamin TIDP PRN PAIN 1219 10-325 MG) Strength: 10 MG-325 MG TABLET PITAVASTATIN CALCIUM 4 MG PO DAILY 03/17/22 (LIVALO) 1221 Strength: 4 MG TABLET VENLAFAXINE HCL 150 MG PO DAILY 03/17/22 (EFFEXOR XR) 1222 Strength: 150 MG CAP MOMETASONE/FORMOTEROL 2 PUFFS IH BID 03/17/22 (DULERA 200 MCG/5 MCG 1223 INHALER) Strength: 1 EA INHALER Multivit With 1 TAB PO DAILY 03/17/22 Minerals/Lutein (Theratrum Comp 50 Plus 1223 Tab) Strength: 1 EACH TABLET Dorzolamide HCl/Timolol 1 DROP BOTH EYES 03/17/22 Maleat BID 1224 (Dorzolamide-Timolol Eye Drops) Strength: 22.3 MG-6.8 MG/ML DROPS [GREEN TEA SUPPLEMENT] (Unknown Dose) PO 03/17/22 Strength: Unknown TAB DAILY 1226 [WHITE VINEGAR SUPPLE] (Unknown Dose) PO 03/17/22 Strength: Unknown 1227 Current Hospital Medications: Sig/Drew Start time Last Medication Dose Route Stop Time Status Admin Ibuprofen 0 .STK-MED ONE 10/07 2025 DC .ROUTE Albuterol Sulfate 0 .STK-MED ONE 10/07 0334 DC .ROUTE Ceftriaxone Sodium 0 .STK-MED ONE 10/07 0307 DC .ROUTE Acetaminophen 0 .STK-MED ONE 10/07 0249 DC .ROUTE Medication list: I have utilized all available resources to obtain/review the patient's current medications including all prescriptions, [id number] medicines, daily supplements. Allergies: Coded Allergies: metaxalone (From SKELAXIN) (Severe, SHORT OF BREATH 03/17/22) febuxostat (From ULORIC) (Intermediate, UPSET STOMACH 03/17/22) Uncoded Allergies: LAMISIL (Severe, RASH 08/15/13) Cardiac Risk Factors: Hypertension, High Cholesterol, Diabetes, Smoking (Former) , Lack of physical activity, Obesity Problem List Problem List 1. COPD with acute exacerbation 2. Pneumonia 3. Acute hypoxemic respiratory failure 4. Sepsis Past Medical/Social History Past medical history: Reports: COPD, diabetes mellitus (Pre-Diabetic. ), hyperlipidemia, hypertension. Additional medical history: Neuropathy. Gout. Asthma. Anxiety/depression. Chronic back/knee pain. Past surgical history: Reports: cholecystectomy, knee ( bilateral knee replacements). Additional surgical history: Cataract surgery Patient History FATHER ( OF [place]). Additional family history: Family history of CAD. Social history: Reports: lives alone, single, quit smoking (quit cigarettes but vapes. ), no alcohol use, no drug abuse. Additional social history: Lives in Home but has poor transportation and unable to afford some medications. Can normally perform basic ADL's without limitations. Review of Systems Constitutional: Reports: fatigue, fever, generalized weakness. Denies: chills. Skin: Denies: diaphoresis, itching. Allergy/Immun: Denies: itching. Eyes: Denies: visual loss/blurred, diplopia. ENT: Denies: nasal congestion, nose bleeding, sinus problem, sore throat. Respiratory: Reports: productive cough (sputum), SOB, wheezing. Denies: hemoptysis. Cardiovascular: Denies: chest pain, edema, orthopnea, palpitations. GI: Denies: abdominal pain, nausea, vomiting. : Denies: dysuria, hematuria. Musculoskeletal: Denies: extremity pain, extremity swelling. Heme: Denies: bleeding. Neuro: Denies: confusion, dizziness, headache, lightheaded. Psych: Denies: agitation, anxiety. Physical Exam VS/I O Vitals: BP 148/70; heart rate 118; respirations 20; temperature 100.7 F; SpO2 93% on 6 L Oxymizer. General appearance: alert, awake, conversant, face symmetrical, obese Head/Eyes: atraumatic, clear cornea, normocephalic, normal conjunctiva/sclera ENT: normal pharynx, normal sinus, moist mucosal membranes Neck: non-tender, no bruit/NL carotids, no JVD Cardiovascular: no gallop, no murmur, no rub, tachycardia Respiratory: symmetric expansion, on oxygen (via Oxymizer), rhonchi, wheezing ( scattered. ) Abdomen: soft, non-tender, no distention, Large non-tender abdomen. Abdomen quadrants: LLQ normal bowel sounds, LUQ normal bowel sounds, RLQ normal bowel sounds, RUQ normal bowel sounds Extremities: moves all, no edema, normal capillary refill, no clubbing, no cyanosis Musculoskeletal: normal inspection, no CVA tenderness Neuro/HOTEL OR MOTEL MANAGER: alert, oriented X 3, normal speech Skin: dry, intact, no gross abnormalities Psychiatry: normal affect, normal mood Results Findings/Data: Laboratory Tests: 10/07 10/07 10/07 0408 0245 0245 Blood Gas ABG pH (Temp Correct) (7.360 - 7.460) 7.38 ABG pCO2 (Temp Corrct (32 - 46 MMHG) 54.1 *H ABG pO2 (Temp Correct (74 - 108 MMHG) 67.0 *L ABG HCO3 (21 - 29 mmol/L) 32.0 *H ABG Total CO2 (22 - 30 mmol/L) 33.7 *H ABG O2 Saturation (94 - 98 %) 92.1 *L ABG Base Excess (-2.0 - 2.0 mmol/L) 5.7 *H Temperature 37.0 FiO2 (21 - 100 %) 36.0 Chemistry Sodium (136 - 145 mmol/L) 140 Potassium (3.5 - 5.1 mmol/L) 4.5 Chloride (98 - 107 mmol/L) 101 Carbon Dioxide (24 - 33 mmol/L) 30 Anion Gap (10 - 20 mmol/L) 13.5 BUN (7 - 18 mg/dL) 12 Creatinine (0.55 - 1.02 mg/dl) 0.70 Estimated GFR (>60 mL/min) > 60 Est GFR ( Amer) (>60 mL/min) > 60 BUN/Creatinine Ratio (12 - 20) 17 Glucose (70 - 99 mg/dL) 149 *H Calculated Osmolality (272 - 288 mOSM/kg) 281 Lactic Acid (0.4 - 2.0 mmol/L) 1.6 Calcium (8.5 - 10.1 mg/dL) 9.1 Total Bilirubin (0.2 - 1.0 mg/dL) 0.2 AST (15 - 37 U/L) 21 ALT (14 - 59 U/L) 26 Total Alk Phosphatase (46 - 116 U/L) 140 *H Total Protein (6.4 - 8.2 g/dL) 7.9 Albumin (3.4 - 5.0 g/dL) 3.2 *L Globulin (1.5 - 4.0 g/dL) 4.7 *H Albumin/Globulin Ratio (0.5 - 2.0) 0.7 Hematology WBC (4.5 - 13.0 10e3/uL) 13.3 *H RBC (3.80 - 5.10 10e6/uL) 4.35 Hgb (11.5 - 15.3 g/dl) 11.6 Hct (34.0 - 46.0 %) 37.6 MCV (78.0 - 98.0 fL) 86 MCH (25.0 - 35.0 Pg) 26.7 MCHC (31.0 - 36.0 g/dL) 30.9 *L RDW (11.0 - 15.0 %) 16.3 *H Plt Count (150 - 400 10e3/uL) 383 Neut % (Auto) (35 - 75 %) 81 *H [place] % (Auto) (0 - 15 %) 7 Nucleat RBC Rel Count (/100 WBC) 0.0 Neut # (Auto) (1.50 - 8.00 x1000/uL) 10.70 *H Immature Gran % (0 - 1) 0 Lymphocytes % (10 - 50 %) 11 Eosinophils % (0 - 5 %) 1 Basophils % (0 - 5 %) 0 Immature Gran # (0 - 0.05 x1000/uL) 0.05 Lymphocytes # (1.20 - 5.20 x1000/uL) 1.44 Monocytes # (0.40 - 0.90 x1000/uL) 0.92 *H Eosinophils # (0.00 - 0.50 x1000/uL) 0.10 Basophils # (0.00 - 0.30 x1000/uL) 0.05 Serology SARS-CoV-2 Ag (Rapid) (NEGATIVE) NEGATIVE Microbiology: Date/Time Procedure - Status Source Growth 10/07 244 Influenza Virus Type B Antigen - COMP NASOPHARG 10/07 244 Influenza Virus Type A Antigen - COMP NASOPHARG 10/07 244 Blood Culture - RECD BLOOD 10/07 244 Blood Culture - RECD BLOOD Results: labs reviewed, vital signs stable, EKG personally reviewed, x-ray personally reviewed Diagnosis, Assessment Plan Dx/Assessment/Plan: Assessment: 1. COPD-asthma overlap with acute exacerbation. 2. Acute hypoxemic respiratory failure. 3. Suspect left lower lobe pneumonia. 4. Sepsis secondary to above with leukocytosis, tachycardia, tachypnea. Normotensive not needing fluid resuscitation. 5. Hypertension/hyperlipidemia. 6. History of gout, anxiety/depression. 7. Former smoker but currently vapes. 8. Chronic back and knee pain. Plan: 1. Admit to observation for further evaluation. 2. Monitor vitals and place on continuous telemetry. 3. Light IV fluid hydration at 50 mL/hour. Strict I Os. Cardiac diet. 4. Start IV Rocephin/Zithromax. IV Solu-Medrol 60 mg Q8. 5. Add DuoNebs, formoterol, budesonide nebs. 6. Check sputum culture. Add Acapella/incentive. 7. Monitor labs and electrolytes. Check TSH, Mag. Repeat a.m. CXR. 8. O2 to maintain SpO2 greater than 90%. Wean as tolerated. 9. Caution sedating medicines as can easily cause hypercapnic respiratory failure. 10. Resume appropriate home medications. 11. DVT prophylaxis with SCDs and GI prophylaxis with PPI. 12. Advanced care planning: I have discussed the patient's code status in detail and she is designated herself is a full code. She does not have a living will on file. Next of kin is her sister Amanda. Differential diagnosis: COPD exacerbation, pneumonia, CHF exacerbation, acute bronchitis. Shared decision-making: I have discussed the patient's diagnosis and treatment in detail. I have provided opportunity for the patient to ask questions and her questions were answered. The patient is agreeable with the above treatment plan. Time spent reviewing, assessing, interpreting, obtaining, and developing a treatment plan was 65 minutes. Potential Risk of Events: Potential risk of an Adverse Event for this patient may include: 1. Worsening respiratory failure requiring mechanical ventilation. 2. Cardiac arrhythmias. 3. Septic shock. 4. Blood clot. Orders: Procedure Date/time Status CHEST PORTABLE 10/08 06 Active THYROID PROFILE W/TSH 10/08 06 Active MAGNESIUM 10/08 06 Active COMP METABOLIC PANEL 10/08 06 Active CBC W/AUTO DIFFERENTIAL 10/08 06 Active CARDIAC DIET 10/07 B Active PHYSICAL THERAPY CONSULT 10/07 08 Active Hypoglycemia Protocol + 10/07 0515 Active RT: Aerosol Treatment + 10/07 513 Active RESPIRATORY THERAPY CONSULT 10/07 0514 Active Suggested Problem 10/07 0511 Active VTE Risk Assessment: Provider 10/07 0511 Active Vital Signs + 10/07 0511 Active Sequential Compression Device 10/07 0511 Active Saline Lock + 10/07 0511 Active RT: Pulse Oximetry + 10/07 0511 Active RT: Oxygen Therapy + 10/07 0511 Active Intake Output + 10/07 0511 Active Weight: Obtain -POM + 10/07 0511 Active Claims Investigator: Telemetry + 10/07 0511 Active Activity + 10/07 0511 Active Blood Glucose Monitoring + 10/07 0511 Active OPERATIONS SUPPORT REPRESENTATIVE CONSULT 10/07 0511 Active SQUIRREL WORKER CONSULT 10/07 0511 Active CODE STATUS 10/07 0511 Active RT: Sputum Collection+ 10/07 UNK Active RT: Incentive Spirometry + 10/07 UNK Active RT: Acapella + 10/07 UNK Active CULTURE SPUTUM 10/07 UNK Active ADMIT ORDER FROM [facility] 10/07 UNK Active Code status: full code Plan discussed with: patient at 0516 RPT #: [id number] END OF REPORT CC'ed Logic: Attending Provider: MYRON KERR Referring Provider: PHYSICIAN NO Consulting Provider: SKIP ARNDT Admitting Provider: MYRON Wilks MD [address], [address], [place] - [facility] 10/23/2022 16:10:00 Procedures Surgical History Date Name Laterality Status Provider Name and Address Organization Details Recorded Time 12/10/19 19 Medication Reconcilliation completed Natividad Melgar [place] - [facility] 12/09/2018 14:09:15 02/11/20 17 Date of Last Colonoscopy completed Marisabel Hsusein RN [address], [place], [address], [place] - [facility] 02/11/2019 13:12:40 Colonoscopy completed Serenity Espinoza [place] - [facility] 12/15/2019 13:14:31 Cataract Surgery completed Tanisha Philip [place] - [facility] 11/03/2017 14:13:47 Knee Surgery completed Tanisha Palacios [place] - [facility] 11/03/2017 14:13:53 Tubal Ligation completed Tanisha Palacios [place] - [facility] 11/03/2017 14:13:59 Cholecystectomy, laparoscopic completed Tanisha Palacios [place] - [facility] 10/19/2018 08:39:40 Imaging Results None recorded. Procedure Notes None recorded. Medical Equipment None Reported. Allergies Allergen ID Allergen Name Allergen Category Reaction Reaction Severity Criticality Documentation Date Start Date Code Code System Note Provider Name and Address Organization Details Recorded Time 150480 metaxalon e medicatio n Not available Not available Not available 09/21/20182012 83317 RxNorm Crystal Earlywine null, [place] - [facility] 9 16:20:30 [id number] Uloric medicatio n abdominal pain Not available Not available 12/15/2019 69227 6 RxNorm Serenity Alexis null, [place] - [facility] 0 13:12:06 77896 Lamisil medicatio n Not available Not available Not available 11/03/2017 67843 6 RxNorm Tanisha Palacios null, [place] - [facility] 8 14:07:44 90077 Skelaxin medicatio n Not available Not available Not available 11/03/201706213 5 RxNorm Tanisha Palacios null, JOSE CARL[place] - [facility] 8 14:07:55 Medications Name Sig Start Date Stop Date Status Note LastModified by Organization Details LastModified Time carisoprod ol 350 mg tablet TAKE 1 TABLET BY MOUTH THREE (3) TIMES DAILY NEEDED 12/14 completed Not Available Not Available Not Available cyclobenza corbin 10 mg tablet TAKE ONE (1) TABLET BY MOUTH EVERY EIGHT (8) HOURS active Not Available Not Available No t Available amoxicilli n 500 mg capsule 11/03 completed Not Available Not Available Not Available latanopros t 0.005 % eye drops INSTILL ONE (1) DROP INTO BOTH EYES EVERY NIGHT AT BEDTIME active Not Available Not Available No t Available promethazi ne-DM 6.25 mg-15 mg/5 mL oral syrup Take 5 mL every 6 hours by oral route as needed for 10 days. 12/09 completed Not Available Not Available Not Available prednisone 10 mg tablet TAKE 1 TABLET BY MOUTH ONCE DAILY 03/18 completed Not Available Not Available Not Available atorvastat in 20 mg tablet TAKE 1 TABLET BY MOUTH EVERY DAY 03/18 completed Not Available Not Available Not Available cyanocobal kat (vit B-12) 2,500 mcg sublingual tablet TAKE 1 TABLET SL DAILY 12/14 completed Not Available Not Available Not Available azithromyc in 250 mg tablet TAKE 2 TABLETS TODAY THEN TAKE 1 TABLET DAILY FOR THE NEXT 4 DAYS 03/18 completed Not Available Not Available Not Available ibuprofen 800 mg tablet TAKE ONE (1) TABLET BY MOUTH THREE TIMES A DAY active Not Available Not Available No t Available alprazolam 1 mg tablet Take 1 tablet 4 times a day by oral route as needed for 10 days. 12/13 completed Not Available Not Available Not Available meloxicam 15 mg tablet TAKE 1 TABLET BY MOUTH EVERY DAY 03/18 completed Not Available Not Available Not Available prednisone 20 mg tablet TAKE 1 TABLET BY MOUTH EVERY DAY 03/18 completed Not Available Not Available Not Available sertraline 100 mg tablet Take 2 tablets every day by oral route as directed for 30 days. 03/18 completed Not Available Not Available Not Available prednisone 5 mg tablet Take 1 tablet every day by oral route. 11/15 completed Not Available Not Available Not Available venlafaxin e ER 150 mg capsule,ex tended release 24 hr TAKE 1 CAPSULE BY MOUTH EVERY DAY active Not Available Not Available No t Available penicillin V potassium 500 mg tablet TAKE ONE (1) TABLET BY MOUTH FOUR TIMES A DAY 03/18 completed Not Available Not Available Not Available acetaminop hen 300 mg-codeine 30 mg tablet TAKE 1 TABLET BY MOUTH EVERY FOUR (4) HOURS FOR PAIN 03/18 completed Not Available Not Available Not Available amlodipine 5 mg tablet TAKE 1 TABLET BY MOUTH EVERY DAY active Not Available Not Available No t Available hydrocodon e 10 mg-acetami nophen 325 mg tablet TAKE ONE (1) TABLET BY MOUTH EACH MORNING AND ONE HALF (1/2) TABLET EACH EVENING NEEDED FOR PAIN active Not Available Not Available No t Available baclofen 20 mg tablet 11/03 completed Not Available Not Available Not Available alprazolam 0.5 mg tablet TAKE 0.5 MG ORALLY THREE TIMES A DAY NEEDED FOR ANXIETY active Not Available Not Available No t Available amlodipine 10 mg tablet Take 1 tablet every day by oral route as directed for 30 days. 12/14 completed Not Available Not Available Not Available hydrocodon e 7.5 mg-acetami nophen 325 mg tablet TAKE 1 TABLET BY MOUTH EVERY EIGHT (8) HOURS NEEDED FOR PAIN active Not Available Not Available No t Available methylcell ulose (laxative) 500 mg tablet TAKE 1-2 TABLETS DAILY NEEDED 12/13 completed Not Available Not Available Not Available indomethac in 50 mg capsule TAKE ONE (1) CAPSULE BY MOUTH EVERY DAY NEEDED FOR PAIN; ADMINIST ER WITH FOOD OR MILK 03/18 completed Not Available Not Available Not Available gabapentin 300 mg capsule TAKE 1 CAPSULE BY MOUTH THREE (3) TIMES DAILY active Not Available Not Available No t Available omeprazole 20 mg capsule,de layed release TAKE ONE (1) CAPSULE BY MOUTH EVERY DAY active Not Available Not Available No t Available dorzolamid e 22.3 mg-timolol 6.8 mg/mL eye drops ADMINIST ER ONE (1) DROP INTO BOTH EYES TWO TIMES A DAY. active Not Available Not Available No t Available acetaminop hen 300 mg-codeine 60 mg tablet Take 1 tablet every 6 hours by oral route as needed for 30 days. 12/13 completed Not Available Not Available Not Available hydrochlor othiazide 25 mg tablet TAKE 1 TABLET BY MOUTH EVERY DAY active Not Available Not Available No t Available mupirocin 2 % topical ointment 09/16 completed Not Available Not Available Not Available furosemide 20 mg tablet TAKE 1 TABLET BY MOUTH EVERY DAY 12/14 completed Not Available Not Available Not Available levofloxac in 500 mg tablet TAKE ONE (1) TABLET BY MOUTH EVERY DAY FOR 10 DAYS 03/18 completed Not Available Not Available Not Available methylpred nisolone 4 mg tablets in a dose pack TAKE DIRECTED ON PACKAGE active Not Available Not Available No t Available timolol maleate 0.5 % eye drops 1 drop each eye twice daily active Not Available Not Available No t Available ketorolac 60 mg/2 mL intramuscu lar solution Inject 2 mL by intramus cular route. 12/13 completed Not Available Not Available Not Available lisinopril 40 mg tablet TAKE ONE (1) TABLET BY MOUTH EVERY DAY active Not Available Not Available No t Available piroxicam 20 mg capsule 12/14 completed Not Available Not Available Not Available Bactroban Nasal 2 % ointment Take 1 applicat ion twice a day by nasal route as directed for 30 days. 2017 active Not Available Not Available Not Avai lable Ventolin HFA 90 mcg/actuat ion aerosol inhaler INHALE TWO (2) PUFFS EVERY FOUR (4) HOURS BY INHALATI ON ROUTE NEEDED FOR 30 DAYS. active Not Available Not Available No t Available cholestyra mine (with sugar) 4 gram powder for susp in a packet Take 1 packet twice a day by oral route. 12/14 completed Not Available Not Available Not Available pregabalin 100 mg capsule 1 po twice daily 03/18 completed Not Available Not Available Not Available sertraline 1 q day 01/29 completed Not Available Not Available Not Available Vitamin C 1 q day active Not Available Not Av ailable Not Available Vitamin B-12 Take one tablet (1,500 mcg) by mouth daily active Not Available Not Available No t Available Fish Oil bid 12/14 completed Not Available Not Available Not Available latanopros t 1 drop at bedtime in each eye 04/16 completed Double Entry Not Available Not Available Not Available multivitam in Take 1 tablet daily active Not Available Not Available No t Available hydrochlor othiazide 12.5 mg tablet Take 1 tablet every day by oral route as directed for 30 days. 05/24 completed Not Available Not Available Not Available Uloric 40 mg tablet Take 1 tablet every day by oral route as directed for 30 days. 12/14 completed Not Available Not Available Not Available cholecalci ferol (vitamin D3) 25 mcg (1,000 unit) chewable tablet TAKE 1 TABLET BY MOUTH DAILY active Not Available Not Available No t Available Livalo 4 mg tablet TAKE 1 TABLET BY MOUTH EVERY DAY active Not Available Not Available No t Available Dulera 200 mcg-5 mcg/actuat ion HFA aerosol inhaler 2 puffs twice daily 03/18 completed Not Available Not Available Not Available Vitamin D2 1 q day 09/27 completed Not Available Not Available Not Available Yamil Ellipta 200 mcg-62.5 mcg-25 mcg powder for inhalation INHALE ONE (1) PUFF EVERY DAY active Not Available Not Available No t Available Vitals Date Recorded Oxygen saturation Oxygen saturation in Arterial blood by Pulse oximetry Provider Name and Address Organization Details Last Updated DateTime 12/15/2019 97 % 97 % Ali Ofe [place] - [facility] 0 12/18/2019 06:39:53 Date Recorded Body height Body mass index (BMI) Body weight Heart rate Respiratory rate Systolic And Diastolic Provider Name and Address Organization Details Last Updated DateTime 0 152.4 cm 38.7 kg/m2 19903.9 9 g 71 /min 18 /min 110/70 mm[Hg] Serenity Espinoza [place] - [facility] 0 13:16:58 Date Recorded Body height Body mass index (BMI) Body weight Body temperature Heart rate Oxygen saturation Oxygen saturation in Arterial blood by Pulse oximetry Respiratory rate Systolic And Diastolic Provider Name and Address Organization Details Last Updated DateTime 9 152.4 cm 36.4 kg/m2 55629.9 8 g 98.2 [degF] 100 /min 98 % 98 % 16 /min 126/74 mm[Hg] Tanisha Jenningsgan [place] - [facility] 9 09:44:06 Date Recorded Body height Body mass index (BMI) Body weight Body temperature Heart rate Oxygen saturation Oxygen saturation in Arterial blood by Pulse oximetry Respiratory rate Systolic And Diastolic Provider Name and Address Organization Details Last Updated DateTime 9 152.4 cm 34.8 kg/m2 47308.1 4 g 98.3 [degF] 101 /min 98 % 98 % 18 /min 122/76 mm[Hg] Tanisha Palacios [place] - [facility] 9 10:30:47 Date Recorded Body height Heart rate Oxygen saturation Oxygen saturation in Arterial blood by Pulse oximetry Respiratory rate Body mass index (BMI) Body weight Body temperature Systolic And Diastolic Provider Name and Address Organization Details Last Updated DateTime 07/18/201 9 152.4 cm 100 /min 98 % 98 % 18 /min 36 kg/m2 65166.4 g 98.2 [degF] 132/74 mm[Hg] Tanisha Palacois [place] - [facility] 9 10:04:03 Date Recorded Body weight Body mass index (BMI) Body height Heart rate Oxygen saturation Oxygen saturation in Arterial blood by Pulse oximetry Respiratory rate Systolic And Diastolic Provider Name and Address Organization Details Last Updated DateTime 4 93652.5 5 g 37.1 kg/m2 152.4 cm 70 /min 98 % 98 % 18 /min 116/76 mm[Hg] Natividad Melgar [place] - [facility] 4 13:16:54 Social History Question Answer Notes LastModified by Organizat ion Details LastModified Time Tobacco Smoking Status Former Smoker Serenity Alexis [place], [place] - [facility] 12/15/2019 13:14:07 Do You Have An Advance Directive? No [email or web address] Information not available 11/03/2017 What Is Your Level Of Caffeine Consumption? Moderate Information not available 11/03/2017 How Much Tobacco Do You Chew? None [email or web address] Information not available 11/03/2017 What Type Of Diet Are You Following? REGULAR Information not available 11/03/2017 Which Illicit Or Recreational Drugs Have You Used? Denies Information not available 11/03/2017 Hard Of Hearing Or Deaf In One Or Both Ears? No [email or web address] Information not available 11/03/2017 Legally Blind In One Or Both Eyes? No [email or web address] Information no t available 11/03/2017 Live Alone Or With Others? Alone [email or web address] Information not available 11/03/2017 What Was The Date Of Your Most Recent Tobacco Screening? 03/18/2024 [email or web address] Information not available 03/18/2024 How Many Children Do You Have? 2 Information not available 11/03/2017 What Is Your Relationship Status? [email or web address] Information not available 11/03/2017 Are You Sexually Active? No [email or web address] Information not available 11/03/2017 Smoke Alarm In Home Yes Information not available 11/03/2017 How Much Tobacco Do You Smoke? 1 PPD Information not available 12/15/2019 General Stress Level Low [email or web address] Information not available 11/03/2017 How Many Years Have You Smoked Tobacco? 20 Information not available 12/15/2019 Sex: Female Functional Status Question Answer Note LastModified by Organizat ion Details LastModified Time What is your level of alcohol consumption? None [email or web address] Information not available 11/03/2017 Do you or have you ever used smokeless tobacco? Never used [email or web address] Information not available 12/15/2019 Are you currently employed? No Information not available 11/03/2017 Are you able to care for yourself? Yes [email or web address] Information not available 11/03/2017 What is your occupation? disabled [email or web address] Information not available 11/03/2017 Do you or have you ever used e-cigarettes or vape? Current user of electronic cigarettes Information not available 12/15/2019 What is your exercise level? Occasional [email or web address] Information not available 11/03/2017 Mental Status None recorded. Family History Relationship Description Onset Age of this Age Resolved Age Notes LastModified by Organization Details LastModified Time Maternal Grandmother Diabetes mellitus [email or web address] Not available 2017 14:13:40 Medical History No medical history recorded. Gynecological History Statement/Question Response Date of Last Colonoscopy 02/10/2017 Date of Last Mammogram LMP Most Recent Bone Density Obstetrics History GPAL:G 2 P 0 0 0 2 Type Value Living 2 Total 2 Immunizations Vaccine Type Date Status Note Provider Nam e and Address Organization Details Recorded Time influenza, unspecified formulation 3 completed Not Available [facility] 09/24/2019 02:21:36 Influenza, split virus, quadrivalent, preservative 8 completed Chela Roca [place], [place] - [facility] 09/21/2018 16:20:58 Influenza, split virus, quadrivalent, preservative 9 completed Serenity Espinoza [place], [place] - [facility] 12/15/2019 13:12:39 Past Encounters Encounter ID Performer Location Encounter Start Date Encounter Closed Date Diagnosis/Indication Diagnosis SNOMED-CT Code Diagnosis ICD10 Code Diagnosis Note [id number] [place] [address] [place] [address] 11/03/2017 13:28:14 11/03/2017 14:48:32 Body mass index 30+ - obesity 423022732 Z68.39 Chronic pain syndrome 37 0787686 G89.4 [id number] Dario Masetrson APRN [address] [place] [address] 11/19/2017 09:28:27 11/19/2017 10:35:48 Influenza-like symptoms 808458885 R68.89 Acute bronchitis 5581960 2 J20.9 Polyuria 13036008 R35.8 [id number] Dario Masterson APRN [address] [place] [address] 01/29/2018 08:21:15 01/29/2018 12:05:41 Chronic pain syndrome 019484696 G89.4 Generalize d anxiety disorder 97370448 F41.1 Depressive disorder 3548 9007 F33.0 Unintentio nal weight gain 3408050654 10002 R63.5 Lesion of nasal mucosa 734481775 J34.89 [id number] Dario Masterson APRN [address] [place] [address] 04/23/2018 08:22:34 04/23/2018 10:44:44 Chronic pain 30780408 G89.29 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 Generalize d anxiety disorder 40911148 F41.1 Increased to five times per day as needed for one month trial due to increased anxiety and other issues regarding her family. See ROS and PE. Pain in lumbar spine 267 569182 M54.5 Right uppe r quadrant pain 447217950 R10.11 Acute uppe r respiratory infection 61038363 J06.9 [id number] Adrián Masterson MD [address] [place] [address] 05/24/2018 16:20:22 05/24/2018 17:16:27 Chronic pain syndrome 683676252 G89.4 Generalize d anxiety disorder 44375320 F41.1 Hyperlipidemia 96016612 E78.5 Cholelithi asis with obstruction 16318401 K80.81 She has an appt with Dr. Palacios. Long-term drug therapy 602127594 Z79.899 Discussed long-term consequenc es of prednisone therapy, including BP elevation, fluid retention, osteoporos is. She is thinking about stopping the prednisone cold turkey. I advised that she needs to be tapered off of this medication . Kanu verified. Anxiety 10995764 F41.9 [id number] Adrián Masterson MD [address] [place] [address] 06/21/2018 09:19:11 06/21/2018 12:21:47 Long-term drug therapy 598639122 Z79.899 Discussed long-term consequenc es of prednisone therapy, including BP elevation, fluid retention, osteoporos is. She is thinking about stopping the prednisone cold turkey. I advised that she needs to be tapered off of this medication . Kanu verified. Chronic pain 71167022 G8 9.29 Chronic pain syndrome 37 5084728 G89.4 Generalize d anxiety disorder 74754252 F41.1 [id number] Adrián Masterson MD [address] [place] [address] 07/19/2018 09:14:26 07/19/2018 09:58:08 Chronic pain 55905161 G89.29 Chronic pain syndrome 37 4402275 G89.4 Body mass index 30+ - obesity 414968373 Z68.37 Essential hypertension 47434484 I10 [id number] Adrián Masterson MD [address] [place] [address] 08/19/2018 08:45:48 08/19/2018 10:14:15 Long-term drug therapy 915675538 Z79.899 Discussed long-term consequenc es of prednisone therapy, including BP elevation, fluid retention, osteoporos is. She is thinking about stopping the prednisone cold turkey. I advised that she needs to be tapered off of this medication . Kanu verified. Anxiety 67096841 F41.9 Chronic pain 83183018 G8 9.29 Chronic pain syndrome 37 7513432 G89.4 Osteoarthritis 321127850 M19.90 [id number] Adrián Masterson MD [address] [place] [address] 09/16/2018 08:08:50 09/16/2018 09:02:15 Chronic pain 53172363 G89.29 Anxiety 94737380 F41.9 Long-term drug therapy 231635810 Z79.899 Discussed long-term consequenc es of prednisone therapy, including BP elevation, fluid retention, osteoporos is. She is thinking about stopping the prednisone cold turkey. I advised that she needs to be tapered off of this medication . Kanu badillo. 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 Chronic pain syndrome 37 0701698 G89.4 Glaucoma 16369841 H40.9 Anxiety 19416995 F41.9 Cough 33700996 R05 Chronic go uty arthritis 76652657 M1A.00X0 [id number] Adrián Masterson MD [address] [place] [address] 12/09/2018 13:37:10 12/09/2018 14:36:31 Body mass index 30+ - obesity 849003087 Z68.38 Peripheral edema 2734873 00 R60.9 She is to cut the amlodipine 10 mg to 1/2 tablet daily. Dyspnea on exertion 6084 5006 R06.09 [id number] Dario Masterson APRN [address] [place] [address] 12/16/2018 09:16:34 12/16/2018 09:54:12 Chronic pain syndrome 585433467 G89.4 [id number] Dario Masterson APRN [address] [place] [address] 01/14/2019 09:11:45 01/14/2019 11:54:01 Long-term drug therapy 800880442 Z79.899 Chronic pain syndrome 37 8084103 G89.4 [id number] Dario Masterson CRYPTOLOGIC TECHNICIAN TECHNICAL [address] [place] [address] 02/11/2019 09:37:07 02/11/2019 11:52:51 Chronic pain syndrome 646888388 G89.4 Pain of mu ltiple joints 14608276 M25.50 Generalize d anxiety disorder 84925005 F41.1 [id number] Dario Masterson APRN [address] [place] [address] 03/10/2019 09:53:13 03/10/2019 12:03:29 Generalized anxiety disorder 60805609 F41.1 Chronic pain syndrome 37 1795708 G89.4 Pain of mu ltiple joints 07030005 M25.50 [id number] Eric Thakur MD [address] [place] [address] 12/15/2019 12:31:21 12/15/2019 13:59:20 Hyperlipidemia 38475784 E78.5 Hx of hyperlipid emia. Would like lipid panel to be checked. Take a low fat diet, exercise, and loose weight Pain of left wrist 35748 80685 95302 M25.532 Get XRS of left wrist and left hand. See us back or go to Er right away should gets worse or develops any new symptoms or complaints . Follow up with us/her PCP Dr. Torres in a week. Knee pain 33746484 M25.5 69 Hx of bilateral knee arthroplas ty. XRS showed bilateral effusions. On chronic pain management under care of Dr. Torres and asked to continue care with him. I discussed in depth with patient drug to drug interactio ns between Hydrocodon e acetaminop hen, Pregabalin & Xanax (sedation, slowed breathing, difficulty breathing and others). Tells me she has tried pain medicines like Tylenol, NSAIDs & others but dint provider enough pain relief. I offered a consultati on with pain specialist but patient declined. Low back pain 801693207 M54.5 See above under chronic bilateral knee pain I asked her to continue care with Dr. Torres as far as chronic low back pain is concerned. She has declined PT and consultati on with pain specialist . Leukocytosis 186505355 D 72.829 Patient reports a Hx of high WBC Tells me she had taken steroid at that time. Would like white cell count to be checked. Prediabetes 510547887 R7 3.03 Hx of Prediabete s and would like her A1c to be checked. Take a diabetic diet, exercise & loose weight Counseling 180309712 Z71 .9 Set up an appointmen t to discuss preventive care and age appropriat e cancer screening - [id number] Ni Farah APRN [address] [place] [id number] 03/18/2024 12:47:43 03/18/2024 13:46:58 Patient new to provider [id number] 04498 Z76.89 Body mass index 30+ - obesity 815691282 Z68.37 Obesity 642024919 E66.9 Chronic pain 68921432 G8 9.29 Prediabetes 154077417 R7 3.03 Hyperlipidemia 45477287 E78.5 Depression screening 171 516579 Z13.31 [id number] Health Concerns Section Related Observation LastModified by Organization Detai ls LastModified Time None Recorded Concern Status LastModified by Organization Details LastModified Time None Recorded Advance Directives Directive N: Payers Insurance Date Sequence Insurance Name Policy Number Policy Khoury Covered Member ID Khoury Member ID Guarantor Name 04/16/2024 1 [place] [id number] Padmini Lew [id number] Padmini Lew Notes Date Note Type Note Provider Name and Address Organization Details Recorded Time 01/14/2019 text/html Pt here for medication refill, and follow up [place] - [facility] 01/14/2019 10:16:06 02/11/2019 text/html Pt states she is here for blood work ordered by Dr. Alston States she needs refills on pain med and xanax Dario pulliam, [place] - [facility] 02/11/2019 11:03:02 03/10/2019 text/html Pt here to talk to you about some issues going on Dario pulliam, [place] - [facility] 03/10/2019 11:05:09 12/15/2019 text/html Patient tells me she fell out of bed about a week ago. He since then has left wrist pain localizing to its dorsal aspect. Left wrist pain has been mild and feels like an ache and gets worse with holding cane in same hand. No wrist swelling or deformity. Patient has chronic pain issues and sees Dr. Torres and being managed with Hydrocodone acetaminophen and Pregabalin by him. As far as her chronic pain is concerned it would affect knees and lower back. She has a Hx of bilateral knee arthroplasty (right side 2008 and left knee 2010). He even since arthroplasty continues having pain in knees. Knees feel sore and bloated . No popliteal or posterior knee pain. She has lower back pain for last 10 years. Lower back pain would be sharp, moderate to severe, and radiate into thighs & gets worse with lifting and moving around. Uses cane. Eric Ofe pulliam, [place] CAR[place] - [facility] 12/18/2019 07:03:50 03/18/2024 text/html Padmini is a 68 y o female who is a new patient to establish care.Has been seeing Dr. Torres for her care. Has chronic bilateral knee pain. Has had bilateral knee replacements, voices that she continues to have the same pain now than she did prior to the surgery, this is why she takes the hydrocodone/acetami nophen. Has to walk with the cane. Ni Farah, CRYPTOLOGIC TECHNICIAN TECHNICAL [address], [place], [address], [place] - [facility] 03/18/2024 13:42:03 OBGyn Episode No OBEpisode recorded.
--- OUTSIDE RECORDS SUMMARY | 2025-03-02 12:51 | XMS_ITS | Referral Summary ---
Author Organization [employer] ([place], [place], [place], [place]) Address [address] [place] [address] Care Team Providers Care Medical Record Specialist Name Role Phone Buck Torres MD Primary Care Provider [phone] Allergies Active Allergy Reactions Criticality Noted Date [...] INHALE ONE (1) INHALATION EVERY DAY Active Social History Tobacco Use Types Packs/Day Years [...] Date Gal rded Speak language other than Jamaican at home Not on file 09/12/2023 Want [...] 02/02/2023 2:35 PM EDT Plan of Treatment Not on file [facility] Care Teams Medical Record Specialist Relationship Specialty Start Date End Date Buck Torres MD [address] [place] [address] PCP - General Family Medicine 01/23/23
--- OUTSIDE RECORDS SUMMARY | 2025-03-02 12:51 | XMS_ITS | Data Portability ---
Author Organization [facility] [place] Address [address] [place] [address] Care Team Providers Care Route Jumper Name Role Phone HAIR VALDIVIA Primary Care Provider [phone] ALLI HENNESSY Audio Experience Expert KOFFI ELLIOTT Customer Advocacy Manager TITI YOUNG Senior Maintenance Machinist MARY MARTINEZ Primary Care Provider [phone] Assessment Encounter Date Assessment Date Assessment LastModified by Organization Details LastModified Time 12/09/2022 12/09/2022 Imaging Studies: *CXR (10/07/2022): crease ventilation from prior with mild progression of right basilar opacity likely atelectasis; interval improvement in the left basilar opacity with development of an equivocal left pleural effusion Assessment: 1. COPD (per hospital discharge, +smoking history) *PFT (12/08/2022): mild restriction, +midflow obstruction, no change after BERTRAND 2 Acute hypoxemic respiratory failure 3. Recent pneumonia w/ Sepsis 4. Former smoker 1 ppd x 30 years; Quit 2006 5. History of Covid-19 *2020 6. OSAS *HST (12/08/2022): mild TONY, AHI 14, sleep related hypoxia with a BAYLEE of 70%, tachycardia with a max HR of 200 bpm and snoring 7. Home Oxygen use *DME: [facility] ([place]) 8. History of , hypertension, anxiety Plan: 1. Continue Trelegy 200 mcg 1 puff daily-Instructed to rinse mouth after each use 2. Continue Albuterol HFA prn 3. Continue Mucus Relief 600mg ER BID (RX Renewed) 4. Continue Incentive Spirometry 5. Repeat CXR (order sent to [facility]) 6. Recommend APAP 4-20 cm H20; Patient wishes to wait and discuss further at f/u with Dr. Rosario *Discussed sleep hygiene and positional changes when sleeping until f/u visit 7. Continue Home Oxygen 2L n/c prn and exertion *RA Oxygen Saturation 87% after ambulating in exam room from chair to door 8. Candidate for CCM/RPM-discuss at next OV 9. RTO as scheduled or sooner if needed Not available 12/09/2022 19:55:58 12/27/2022 12/27/2022 Imaging Studies: *CXR (10/07/2022): crease ventilation from prior with mild progression of right basilar opacity likely atelectasis; interval improvement in the left basilar opacity with development of an equivocal left pleural effusion Assessment: 1. COPD (per hospital records) *PFT (12/08/2022): mild restriction, midflow obstruction, no change after BERTRAND 2 Acute hypoxemic respiratory failure (improving) *DME: [facility] ([place]) 3. Recent pneumonia *CXR (12/25/2022): mild parenchymal densities of the lingula 4. Former smoker 1 ppd x 30 years; Quit 2006 5. History of Covid-19 (2020) 6. OSAS *HST (12/08/2022): mild TONY, AHI 14, sleep related hypoxia with a BAYLEE of 70%, tachycardia with a max HR of 200 bpm and snoring 7. HTN, CHARLY, Chronic pain Plan: 1. Continue home oxygen, 2 L/m, qHS + prn; discontinue tanks, patient will keep home concentrator for now 2. Continue Trelegy 200 mcg 1 puff daily-Instructed to rinse mouth after each use 3. Continue Albuterol HFA prn 4. Continue Mucus Relief 600mg ER BID 5. Continue Incentive Spirometry; encouraged increased aerobic activity; candidate for pulm rehab 6. Rx APAP 4-20 cm H20 + equipment 7. Enroll in CCM 8. Check PFT's 05/2023 9. RTO in 6 weeks for CPAP compliance check; RTO in 5 months Not available 12/27/2022 12:22:09 05/29/2023 05/29/2023 Imaging Studies: *CXR (10/07/2022): crease ventilation from prior with mild progression of right basilar opacity likely atelectasis; interval improvement in the left basilar opacity with development of an equivocal left pleural effusion Assessment: 1. COPD (per hospital records) *PFT (12/08/2022): mild restriction, midflow obstruction, no change after BERTRAND *PFT (05/29/2023): no restriction, midflow obstruction, no change after BERTRAND 2 Acute hypoxemic respiratory failure (improving) *DME: [facility] ([place]) 3. Hx pneumonia *CXR (12/25/2022): mild parenchymal densities of the lingula 4. Former smoker 1 ppd x 30 years, quit 2006; now using non-nicotine 5. History of Covid-19 (2020) 6. OSAS *HST (12/08/2022): mild TONY, AHI 14, sleep related hypoxia with a BAYLEE of 70%, tachycardia with a max HR of 200 bpm and snoring 7. HTN, CHARLY, Chronic pain Plan: 1. Continue home oxygen, 2 L/m, qHS + prn 2. Continue Trelegy 200 daily; reminded to rinse the mouth after each use 3. Continue Albuterol HFA prn 4. Continue Mucus Relief 600mg ER BID 5. Continue Incentive Spirometry; encouraged increased aerobic activity; candidate for pulm rehab 6. Discontinued APAP 4-20 cm 7. Enrolled in [facility] 8. RTO in 6 months *The patient underwent pulmonary function testing today to evaluate complaints of dyspnea. Results were discussed with the patient. Not available 05/29/2023 16:45:56 12/11/2023 12/11/2023 Imaging Studies: *CXR (10/07/2022): mild progression of right basilar opacity likely atelectasis; interval improvement in the left basilar opacity with development of an equivocal left pleural effusion Assessment: 1. COPD (per hospital records) *PFT (12/08/2022): mild restriction, midflow obstruction, no change after BERTRAND *PFT (05/29/2023): no restriction, midflow obstruction, no change after BERTRAND *PFT (12/11/2023): midflow obstruction, mild restriction, + BERTRAND 2. Chronic hypoxemic respiratory failure *DME: [facility] ([place]) 3. Hx pneumonia *CXR (12/25/2022): mild parenchymal densities of the lingula 4. Former smoker 1 ppd x 30 years, quit 2006; now using non-nicotine vapes 5. History of Covid-19 (2020) 6. OSAS *HST (12/08/2022): mild TONY, AHI 14, sleep related hypoxia with a BAYLEE of 70%, tachycardia with a max HR of 200 bpm and snoring 7. HTN, CHARLY, Chronic pain Plan: 1. Continue home oxygen, 2 L/m, qHS + prn 2. Continue Trelegy 200 daily; reminded to rinse the mouth after each use (Rx renewed) 3. Continue Albuterol HFA prn 4. Continue Mucus Relief 600mg ER BID 5. Continue Incentive Spirometry; encouraged increased aerobic activity; candidate for pulm rehab 6. Discontinued APAP 4-20 cm 7. Enrolled in [facility] 8. Check complete PFT's prior to next OV 9. RTO in 6 months *The patient underwent pulmonary function testing today to evaluate complaints of dyspnea. Results were discussed with the patient. Not available 12/11/2023 16:19:36 01/11/2025 01/11/2025 Imaging Studies: *CXR (10/07/2022): mild progression of right basilar opacity likely atelectasis; interval improvement in the left basilar opacity with development of an equivocal left pleural effusion Assessment: 1. COPD (per hospital records) *PFT (12/08/2022): mild restriction, midflow obstruction, no change after BERTRAND *PFT (05/29/2023): no restriction, midflow obstruction, no change after BERTRAND *PFT (12/11/2023): midflow obstruction, mild restriction, + BERTRAND *PFT (01/11/2025): moderate obstruction, +midflow obstruction, no restriction, moderately reduced DLCO/VA, +gas trapping 2. Chronic hypoxemic respiratory failure *DME: [facility] ([place]) 3. Hx pneumonia *CXR (12/25/2022): mild parenchymal densities of the lingula 4. Former smoker 1 ppd x 30 years, quit 2006; now using non-nicotine vapes 5. History of Covid-19 (2020) 6. OSAS *HST (12/08/2022): mild TONY, AHI 14, sleep related hypoxia with a BAYLEE of 70%, tachycardia with a max HR of 200 bpm and snoring 7. HTN, CHARLY, Chronic pain Plan: 1. Continue home oxygen, 2 L/m, qHS + prn 2. Continue Trelegy 200 daily; reminded to rinse the mouth after each use (Rx renewed) 3. Continue Albuterol HFA prn (RX Renewed) *RX Albuterol nebs TID prn and nebulizer machine 4. Continue Mucus Relief 600mg ER BID (RX Renewed) 5. Continue Incentive Spirometry; encouraged increased aerobic activity; candidate for pulm rehab 6. Discontinued APAP 4-20 cm 7. CCM deactivated 8. Check complete PFT's prior to next OV 9. Smoking Cessation 10. RTO in 6 months, sooner if needed *The patient underwent pulmonary function testing today to evaluate complaints of dyspnea. Results were discussed with the patient. Portions of this note may be dictated using voice recognition software and or use of a medical center representative. Variances in spelling and vocabulary are possible and unintentional. Not all errors are caught/corrected . Please notify the author if any discrepancies are noted or if the meaning of any statement is not clear. This is a summary discussion with the patient and in no way is intended to be a verbatum summation of everything discussed. We apologize for any inconvenience. Not available 01/11/2025 12:22:49 Plan of Treatment Reminders Order Date Submit Date Provider Last Modified By Organization Details Last Modified Time Details Appointments FOLLOW_UP 2024 10:40A Kenzie Richey NP Not available Not available Not available Lab None recorded. Referral None recorded. Procedures None recorded. Surgeries None recorded. Imaging None recorded. Medication Orders Trelegy Ellipta 200 mcg-62.5 mcg-25 mcg powder for inhalatio n 2024 025 [facility], [address] [place] [address], [place], [address], 01/11/2025 12:24:42 albuterol sulfate HFA 90 mcg/actua tion aerosol inhaler 2024 025 [facility], [address] [place] [address], [id number], 01/11/2025 12:24:41 albuterol sulfate 2.5 mg/3 mL (0.083 %) solution for nebulizat ion 2024 025 [facility], [address] [place] [address], [address], 01/11/2025 12:24:41 guaifenes in ER 600 mg tablet, extended release 12 hr 2024 025 [facility], [address] [place] [address], [address], 01/11/2025 12:24:42 Trelegy Ellipta 200 mcg-62.5 mcg-25 mcg powder for inhalatio n 2023 024 [facility], [address] [place] [address], [address], 12/11/2023 16:20:06 Patient TargetsNo targets recorded. Patient Instructions Encounter Date Encounter Id Patient Instructions Last Modified By Organization Details Last Modified Time 12/27/2022 [id number] CONSENT FOR ENROLLMENT IN CHRONIC CARE MANAGEMENT & REMOTE PATIENT MONITORING: The patient agrees to be enrolled in the Chronic Care Management (CCM) and Remote Patient Monitoring (RPM) programs. The patient has been counselled regarding availability of services and cost sharing responsibilities. The patient has been informed that CCM services can only be provided by one provider and that RPM services can be furnished by multiple providers during a 30-day period. The patient has informed of their right to revoke CCM/RPM services at any time and that services will terminate at the end of the current month. The patient has been counselled that they may be billed for a portion of CCM services even though CCM services will not involve a uhtl-he-gyzy meeting with the provider. Not available 12/27/2022 12:22:00 Reason for Referral None Reported. Results Created Date Observation Date Name Description Value Unit Range Abnormal Flag Note LastModifiedBy Organization Detail LastModifiedTime 12/03/1911/10/2022 MAMMO , bilat eral and US, breas t, bilat eral No observ ation record ed. [email or web address] [facility] [address] [place] [address] , [place], [address], 12/03/2022 13:23:32 12/03/19 23 10/07/2022 XR, chest , 2 view No observ ation record ed. Not Available 2022 11:54:50 12/03/19 23 10/08/2022 XR, chest , 2 view No observ ation record ed. [facility] [address] [place] [address] , [place], [address], 12/03/2022 11:55:50 12/16/19 23 10/08/2022 XR, chest , 2 view No observ ation record ed. [email or web address] [facility] [address] [place] [address] [address], [place], [address], 12/15/2022 13:41:30 12/18/19 home sleep testi ng (PROC ) No observ ation record ed. [email or web address] [facility] [address] [facility], [place], [address], 12/19/2022 14:09:11 12/18/1912/08/2022 compl ete PFT w/ [facility] hodil ator adarsh metry * No observ ation record ed. [email or web address] Not Available 2022 14:01:47 01/24/2001/22/2023 CPAP compl iance * No observ ation record ed. [email or web address] Not Available 2022 13:41:52 02/28/20 23 02/19/2023 CPAP compl iance * No observ ation record ed. Not Available 2022 13:21:27 10/07/20 23 05/29/2023 compl ete PFT w/ post [facility] hodil ator adarsh metry * No observ ation record ed. [email or web address] Not Available 2022 08:31:59 12/12/19 24 12/11/2023 pulmo nary funct ion test* No observ ation record ed. [email or web address] Not Available 2023 09:15:48 01/24/20 25 01/23/2025 compl ete PFT* No observ ation record ed. [email or web address] [facility] [address] [place] [address] [address] , [place], [address], 01/23/2025 13:09:09 Result Notes None recorded. Problems Name Problem SNOMED Code Status Onset Date Resolution Date Notes Provider Name and Address Organization Details Recorded Time Chronic obstructive pulmonary disease 02200772 Active 2022 Sophia Richey NP [address], [place], [address], [place] - [facility] 3 16:53:00 Pneumonia 210812808 Active 2022 Sophia Richey NP [address], [place], [address], [place] [facility] 3 16:53:20 History of sepsis 7723086231349 00 Active 2022 Sophia Richey NP [address], [place], [address], [place] [facility] 3 16:53:27 Former heavy tobacco smoker 7188866136143 00 Active 2022 Sophia Richey NP [address], [place], [address], [place] [facility] 3 16:53:34 History of SARS-CoV-2 0187727923991 90786 Active 2022 Sophia Richey NP [address], [place], [address], [place] [facility] 3 16:53:44 Obstructive sleep apnea syndrome 85901767 Active 2022 Sophia Richey NP [address], [place], [address], [place] [facility] 3 16:53:54 Dependence on supplementa l oxygen 509451221568 Active 2022 Sophia Richey NP [address], [place], [address], [place] [facility] 3 16:54:04 Cough 51386817 Active 2022 Sophia Richey NP [address], [place], [address], [place] [facility] 3 16:54:49 Dyspnea on exertion 39937538 Active 2022 Jaylen Rosario, [address], [place], [address], [place] [facility] 3 12:19:17 Chronic hypoxemic respiratory failure 570469609 Active 2023 Jaylen Rosario, DO [address], [place], [address], [place] [facility] 4 16:19:48 Problem Notes None recorded. Procedures Surgical History Date Name Laterality Status Provider Name and Address Organization Details Recorded Time Cholecystectomy completed allan milian [place] - [facility] 12/11/2023 09:53:09 Cataract Surgery completed allan milian [place] [facility] 12/11/2023 09:53:17 total knee replacement completed allan milian [place] [facility] 12/11/2023 09:53:29 Imaging Results None recorded. Procedure Notes None recorded. Medical Equipment None Reported. Allergies Allergen ID Allergen Name Allergen Category Reaction Reaction Severity Criticality Documentation Date Start Date Code Code System Note Provider Name and Address Organization Details Recorded Time lamotrigi ne medicatio n Not available Not available Not available 12/08/2022 58593 RxNorm lynda sergio null, [place] - [facility] 3 11:01:33 cilastati n Not available Not available Not available Not available 12/08/2022 2540 RxNorm lynda sergio null, [place] - [facility] 3 11:01:42 Uloric medicatio n Not available Not available Not available 12/08/2022 68762 6 RxNorm lynda sergio null, [place] - [facility] 3 11:01:51 Medications Name Sig Start Date Stop Date Status Note LastModified by Organization Details LastModified Time cyclobenzap rine 10 mg tablet TAKE ONE (1) TABLET BY MOUTH EVERY EIGHT (8) HOURS NEEDED 01/11 completed Not Available Not Available Not Available latanoprost 0.005 % eye drops INSTILL ONE (1) DROP INTO BOTH EYES AT BEDTIME active Not Available Not Available No t Available prednisone 10 mg tablet TAKE 1 TABLET BY MOUTH ONCE DAILY 01/11 completed Not Available Not Available Not Available albuterol sulfate 2.5 mg/3 mL (0.083 %) solution for nebulizatio n INHALE THREE (3) ML THREE (3) TIMES A DAY BY NEBULIZAT ION ROUTE NEEDED FOR 30 DAYS. active Not Available Not Available No t Available diphenhydra mine 50 mg tablet Take 1 tablet every day by oral route at bedtime. active Not Available Not Available No t Available azithromyci n 250 mg tablet TAKE 1 TABLET BY MOUTH EVERY DAY 01/11 completed Not Available Not Available Not Available ibuprofen 800 mg tablet TAKE ONE (1) TABLET BY MOUTH THREE TIMES A DAY DIRECTED 01/11 completed Not Available Not Available Not Available hydrocodone 5 mg-acetamin ophen 325 mg tablet TAKE 1 TABLET BY MOUTH EVERY EIGHT (8) HOURS NEEDED 03/27 completed Not Available Not Available Not Available meloxicam 15 mg tablet TAKE 1 TABLET BY MOUTH EVERY DAY 01/11 completed Not Available Not Available Not Available prednisone 20 mg tablet TAKE 1 TABLET BY MOUTH EVERY DAY 12/10 completed Not Available Not Available Not Available clobetasol 0.05 % topical cream ONE (1) APPLIC TOPICALLY TWICE A DAY FOR TWO (2) WEEKS 01/11 completed Not Available Not Available Not Available venlafaxine ER 150 mg capsule,ext ended release 24 hr TAKE 1 CAPSULE BY MOUTH EVERY DAY active Not Available Not Available No t Available penicillin V potassium 500 mg tablet TAKE ONE (1) TABLET BY MOUTH FOUR TIMES A DAY 01/11 completed Not Available Not Available Not Available acetaminoph en 300 mg-codeine 30 mg tablet TAKE 1 TABLET BY MOUTH EVERY FOUR (4) HOURS FOR PAIN 01/11 completed Not Available Not Available Not Available amlodipine 5 mg tablet TAKE 1 TABLET BY MOUTH EVERY DAY active Not Available Not Available No t Available hydrocodone 10 mg-acetamin ophen 325 mg tablet TAKE ONE (1) TABLET BY MOUTH EACH MORNING AND ONE HALF (1/2) TABLET EACH EVENING NEEDED FOR PAIN 01/11 completed Not Available Not Available Not Available alprazolam 0.5 mg tablet TAKE ONE (1) TABLET BY MOUTH THREE (3) TIMES DAILY NEEDED FOR ANXIETY active Not Available Not Available No t Available triamcinolo ne acetonide 0.1 % dental paste ONE (1) APPLIC TO DENTAL AREA THREE TIMES A DAY NEEDED FOR MOUTH IRRITATIO N; USE AFTER FOOD AND/OR DRINK AND/OR ORAL HYGIENE 01/11 completed Not Available Not Available Not Available oxycodone-a cetaminophe n 10 mg-325 mg tablet TAKE ONE (1) TABLET ORALLY EVERY 8 HOURS NEEDED FOR PAIN active Not Available Not Available No t Available hydrocodone 7.5 mg-acetamin ophen 325 mg tablet TAKE 1 TABLET BY MOUTH THREE (3) TIMES DAILY NEEDED FOR PAIN 01/11 completed Not Available Not Available Not Available indomethaci n 50 mg capsule TAKE ONE (1) CAPSULE BY MOUTH EVERY DAY NEEDED FOR PAIN; ADMINISTE R WITH FOOD OR MILK 02/13 completed Not Available Not Available Not Available omeprazole 20 mg capsule,del ayed release TAKE ONE (1) CAPSULE BY MOUTH EVERY DAY active Not Available Not Available No t Available dorzolamide 22.3 mg-timolol 6.8 mg/mL eye drops INSTILL ONE (1) DROP INTO BOTH EYES TWICE DAILY active Not Available Not Available No t Available hydrochloro thiazide 25 mg tablet TAKE 1 TABLET BY MOUTH EVERY DAY active Not Available Not Available No t Available gabapentin 100 mg capsule TAKE 1 CAPSULE BY MOUTH EVERY 8 HOURS 03/27 completed Not Available Not Available Not Available levofloxaci n 500 mg tablet TAKE ONE (1) TABLET BY MOUTH EVERY DAY FOR 10 DAYS 05/29 completed Not Available Not Available Not Available methylpredn isolone 4 mg tablets in a dose pack TAKE BY MOUTH PER PACKAGE DIRECTION S active Not Available Not Available No t Available albuterol sulfate HFA 90 mcg/actuati on aerosol inhaler INHALE TWO (2) PUFFS EVERY FOUR (4) HOURS BY INHALATIO N ROUTE NEEDED 2024 active Not Available Not Available Not Avai lable lisinopril 40 mg tablet TAKE ONE (1) TABLET BY MOUTH EVERY DAY active Not Available Not Available No t Available cefdinir 300 mg capsule TAKE 1 CAPSULE ORALLY TWICE A DAY FOR 10 DAYS 01/11 completed Not Available Not Available Not Available fluoxetine 20 mg capsule TAKE 1 CAPSULE BY MOUTH EVERY DAY active Not Available Not Available No t Available amoxicillin 875 mg-potassiu m clavulanate 125 mg tablet TAKE 1 TABLET BY MOUTH TWICE DAILY 12/27 completed Not Available Not Available Not Available azithromyci n 500 mg tablet TAKE 1 TABLET BY MOUTH EVERY DAY AT 10 IN THE MORNING 12/27 completed Not Available Not Available Not Available rosuvastati n 10 mg tablet TAKE ONE (1) TABLET BY MOUTH EVERY DAY active Not Available Not Available No t Available bupropion HCl XL 150 mg 24 hr tablet, extended release TAKE ONE (1) TABLET BY MOUTH EVERY DAY active Not Available Not Available No t Available Symbicort 160 mcg-4.5 mcg/actuati on HFA aerosol inhaler INHALE ONE (1) PUFF BY MOUTH TWICE DAILY 12/27 completed Not Available Not Available Not Available Vitamin D3 125 mcg (5,000 unit) tablet Take 1 tablet every day by oral route. active Not Available Not Available No t Available Livalo 4 mg tablet TAKE 1 TABLET BY MOUTH EVERY DAY 01/11 completed Not Available Not Available Not Available Dulera 200 mcg-5 mcg/actuati on HFA aerosol inhaler INHALE TWO (2) PUFFS TWICE DAILY 12/27 completed Not Available Not Available Not Available Suprep Bowel Prep Kit 17.5 gram-3.13 gram-1.6 gram oral solution USE DIRECTED 03/27 completed Not Available Not Available Not Available guaifenesin ER 600 mg tablet, extended release 12 hr TAKE ONE (1) TABLET EVERY 12 HOURS BY ORAL ROUTE NEEDED FOR 30 DAYS. active Not Available Not Available No t Available Women's Multivitami n 1 tab PO daily active Not Available Not Available No t Available Trelegy Ellipta 200 mcg-62.5 mcg-25 mcg powder for inhalation INHALE ONE (1) PUFF EVERY DAY BY INHALATIO N ROUTE DIRECTED FOR 90 DAYS. active Not Available Not Available No t Available Vitals Date Recorded Body height Body temperature Heart rate Respiratory rate Oxygen saturation Oxygen saturation in Arterial blood by Pulse oximetry Provider Name and Address Organization Details Last Updated DateTime 3 152.4 cm 97.7 [degF] 113 /min 20 /min 95 % 95 % lynda hill [facility] 3 10:05:50 Date Recorded Body height Body mass index (BMI) Body weight Oxygen saturation Oxygen saturation in Arterial blood by Pulse oximetry Heart rate Respiratory rate Body temperature Systolic And Diastolic Provider Name and Address Organization Details Last Updated DateTime 4 152.4 cm 35.7 kg/m2 35468.4 g 94 % 94 % 98 /min 18 /min 97.9 [degF] 132/88 mm[Hg] allan milian [facility] 4 09:53:49 Date Recorded Body height Oxygen saturation Oxygen saturation in Arterial blood by Pulse oximetry Heart rate Respiratory rate Systolic And Diastolic Provider Name and Address Organization Details Last Updated DateTime 3 152.4 cm 91 % 91 % 107 /min 18 /min 128/78 mm[Hg] Yesy Stewart [facility] 3 10:55:28 Date Recorded Body weight Body mass index (BMI) Body height Oxygen saturation Oxygen saturation in Arterial blood by Pulse oximetry Heart rate Respiratory rate Body temperature Systolic And Diastolic Provider Name and Address Organization Details Last Updated DateTime 5 12505.2 g 28.6 kg/m2 152.4 cm 92 % 92 % 94 /min 18 /min 97.4 [degF] 124/68 mm[Hg] allan milian [facility] 5 10:50:46 Date Recorded Body height Body mass index (BMI) Body weight Oxygen saturation Oxygen saturation in Arterial blood by Pulse oximetry Heart rate Respiratory rate Body temperature Systolic And Diastolic Provider Name and Address Organization Details Last Updated DateTime 3 152.4 cm 35.7 kg/m2 64772.4 g 95 % 95 % 86 /min 18 /min 96.9 [degF] 142/78 mm[Hg] Nahomy Islas [place] [facility] 3 10:04:54 Social History Question Answer Notes LastModified by Organizat ion Details LastModified Time Tobacco Smoking Status Current Every Day Smoker [facility], [place] [facility] 01/11/2025 10:47:14 Do You Have An Advance Directive? No Information n ot available 12/11/2023 Is Your Home Air Conditioned? Yes [email or web address] Information not available 12/11/2023 Are You Blind Or Do You Have Difficulty Seeing? No Information n ot available 12/08/2022 In The 14 Days Before Symptom Onset, Have You Had Close Contact With A Laboratory-confirm ed COVID-19 While That Case Was Ill? No [email or web address] Information n ot available 12/08/2022 In The 14 Days Before Symptom Onset, Have You Had Close Contact With A Person Who Is Under Investigation For COVID-19 While That Person Was Ill? No [email or web address] Information not available 12/08/2022 Have You Been To An Area Known To Be High Risk For COVID-19? No [email or web address] Information not available 12/08/2022 Are You Deaf Or Do You Have Serious Difficulty Hearing? No [email or web address] Information not available 12/08/2022 Where Do You Live? Apartment [email or web address] Inform ation not available 12/11/2023 Do You Have A Medical Power Of Beauty Artist? No [email or web address] Information not available 12/11/2023 What Was The Date Of Your Most Recent Tobacco Screening? 01/11/2025 [email or web address] Information not available 01/11/2025 What Is Your Current Pack Years? 30ormorepacky ears ernsbgbrs19 Information not available 12/08/2022 Do You Have Any Pets? Yes 1 Dog [email or web address] Information not available 12/11/2023 What Is Your Relationship Status? [email or web address] Information not available 12/11/2023 At What Age Did You Start Smoking Tobacco? 21 [email or web address] Information not available 12/08/2022 Are There Any Smokers In Your House? No [email or web address] Information not available 12/08/2022 How Much Tobacco Do You Smoke? 1 PPD [email or web address] Information not available 01/11/2025 Has Tobacco Cessation Counseling Been Provided? No Information not available 12/11/2023 How Many Years Have You Smoked Tobacco? 30 [email or web address] Information not available 12/08/2022 Have You Recently Traveled Abroad? No [email or web address] Information not available 12/08/2022 Are You Currently In School? No [email or web address] Information not available 12/08/2022 How Many Years Have You Used E-cigarettes Or Vape? 4 [email or web address] Information not available 05/29/2023 Sex: Unknown Functional Status Question Answer Note LastModified by Organizat ion Details LastModified Time Do you or have you ever used any other forms of tobacco or nicotine? Yes [email or web address] Information not available 12/08/2022 Do you or have you ever used smokeless tobacco? Never used smokeless tobacco lsiqxqsta89 Information not available 12/08/2022 Are you currently employed? No retired from [employer] [email or web address] Information not available 12/08/2022 Do you have difficulty doing errands alone? No [email or web address] Information not available 12/08/2022 Do you or have you ever used e-cigarettes or vape? Former user of electronic cigarettes [email or web address] Information not available 12/08/2022 Mental Status Question Answer Note LastModified by Organization D etails LastModified Time Do you have difficulty concentrating, remembering or making decisions? No Information no t available 12/08/2022 Family History Relationship Description Onset Age of this Age Resolved Age Notes LastModified by Organization Details LastModified Time Mother Arthritis [email or web address] Not availa ble 12/11/2023 09:52:07 Medical History No medical history recorded. Gynecological HistoryNo gynecological history recorded. Obstetrics History GPAL:G 0 P 0 0 0 0 Past Encounters Encounter ID Performer Location Encounter Start Date Encounter Closed Date Diagnosis/Indication Diagnosis SNOMED-CT Code Diagnosis ICD10 Code Diagnosis Note [id number] Sophia Richey NP [address] [place] [address] 12/08/2022 10:05:22 12/10/2022 10:37:02 Chronic obstructive pulmonary disease 32346194 J44.9 Pneumonia 368000677 J18. 9 Obstructiv e sleep apnea syndrome 72543249 G47.33 History of sepsis 088141 8830 60190 Z86.19 History of SARS-CoV-2 29 29117494 13131590 Z86.16 Former hea vy tobacco smoker 6710911298 19308 Z87.891 Dependence on supplemental oxygen 0014208259 07 Z99.81 Cough 51151711 R05.9 [id number] Sophia Richey NP [address] [place] [address] 12/09/2022 09:38:45 12/10/2022 10:57:20 Chronic obstructive pulmonary disease 66468931 J44.9 Pneumonia 536403075 J18. 9 Obstructiv e sleep apnea syndrome 70073914 G47.33 History of sepsis 702568 7536 05784 Z86.19 History of SARS-CoV-2 29 14369729 56753990 Z86.16 Former hea vy tobacco smoker 8278532948 31113 Z87.891 Dependence on supplemental oxygen 6804880681 07 Z99.81 Cough 51095452 R05.9 [id number] Jaylen Rosario DO [address] [place] [address] 12/27/2022 10:33:28 12/27/2022 12:23:24 Chronic obstructive pulmonary disease 34601939 J44.9 Pneumonia 858657849 J18. 9 Obstructiv e sleep apnea syndrome 86658097 G47.33 Cough 29969268 R05.9 Dyspnea on exertion 6084 5006 R06.09 Acute hypo xemic respiratory failure 668109510 J96.01 [id number] Jaylen Rosario [address] [place], [place] [address] 05/29/2023 09:36:27 05/29/2023 10:47:15 Chronic obstructive pulmonary disease 06152844 J44.9 Obstructiv e sleep apnea syndrome 31267487 G47.33 Dyspnea on exertion 6084 5006 R06.09 [id number] Jaylen Rosario [address] [place] [id number] 12/11/2023 09:42:52 12/11/2023 10:48:40 Chronic obstructive pulmonary disease 45617274 J44.9 Obstructiv e sleep apnea syndrome 04782360 G47.33 Dyspnea on exertion 6084 5006 R06.09 Chronic hy poxemic respiratory failure 264082575 J96.11 [id number] Jaylen Rosario [address] [place], [place] [address] 01/11/2025 10:35:55 01/11/2025 13:22:22 Chronic obstructive pulmonary disease 56944914 J44.9 Chronic hy poxemic respiratory failure 932401118 J96.11 Obstructiv e sleep apnea syndrome 01517548 G47.33 Dyspnea on exertion 6084 5006 R06.09 Health Concerns Section Related Observation LastModified by Organization Detai ls LastModified Time None Recorded Concern Status LastModified by Organization Details LastModified Time None Recorded Advance Directives Directive N: Payers Insurance Date Sequence Insurance Name Policy Number Policy Khoury Covered Member ID Khoury Member ID Guarantor Name 12/11/2023 2 [place] Padmini K Lew [id number] Padmini Lew 12/11/2023 1 [place] [id number] Padmini K Lew [id number] Padmini Lew 01/08/2025 1 AETNA (MEDICARE REPLACEMENT/A DVANTAGE - PPO) [id number] Padmini Lew [id number] Padmini Lew 11/02/2024 1 [place] (MEDICARE REPLACEMENT [facility]) [id number] Padmini Lew [id number] Padmini Lew 12/11/2023 1 [place] Padmini Lew [id number] Padmini Lew Notes Date Note Type Note Provider Name and Address Organization Details Recorded Time 12/09/2022 text/html This is a 66 yea r-old female who presents to the office today to review the results of a recent home sleep study completed on 12/08/2022 that revealed mild TONY, AHI 14, sleep related hypoxia with a BAYLEE of 70%, tachycardia with a max HR of 200 bpm and snoring. Results and proposed treatment plan was discussed with the patient. Sophia Richey NP [address], [place], [address], [facility] 12/09/2022 19:56:38 12/27/2022 text/html this 67-year-old female returns to the office for ongoing management of chronic hypoxemic respiratory failure, COPD, and sleep apnea. Since the last visit the patient reports no significant medical events. Today the patient reports persisting exertional dyspnea but notes improvement since starting Trelegy. She reports a slight cough but no wheezing. She continues on oxygen at night and rarely during the day now. She is using her rescue inhaler twice daily primarily for exertion. She continues on generic Mucinex. She is using her incentive spirometer 2-3 times daily. A CXR dated 12/25/2022 was reviewed, revealed mild parenchymal densities of the lingula. The results were discussed with the patient. LAST VISIT:This is a 66 year-old female who presents to the office today to review the results of a recent home sleep study completed on 12/08/2022 that revealed mild TONY, AHI 14, sleep related hypoxia with a BAYLEE of 70%, tachycardia with a max HR of 200 bpm and snoring. Results and proposed treatment plan was discussed with the patient. INITIAL VISIT:This is a 66-year-old female who presents to the office today as a new patient referred by [facility] post hospital discharge in September. She was admitted to [facility] 10/07/2022 for COPD with acute exacerbation, pneumonia, acute hypoxemic respiratory failure and sepsis. Patient was treated with nebulizers and IV Rocephin. She was discharged home with antibiotics,oxygen for as needed use and Trelegy 200 mcg. Today patient complains of an occasional dry cough, shortness of breath with exertion that has gradually improved since beginning Trelegy and occasional wheezing. Reports she was diagnosed with COPD years ago. She is a former smoker of one pack per day 30 years and quit 16 years ago. She does have a dog in the home. Denies any environmental or occupational exposures. Family history is positive for emphysema. A focused sleep assessment is positive for TONY but returned her CPAP machine several years ago. She has received the Moderna Vaccine x 4. Denies any fever, chills, n/v/d, abdominal pain or lower extremity edema. Jaylen Rosario DO [address], [place], [address], [facility] 12/27/2022 12:22:40 05/29/2023 text/html This 67-year-old female returns to the office for ongoing management of chronic hypoxemic respiratory failure, COPD, and sleep apnea. Since the last visit the patient reports no significant medical events. Today the patient complains of exertional dyspnea and bilateral knee pain. No nocturnal respiratory symptoms noted. Denies anosmia, fever, chills, chest pain, nausea, vomiting, diarrhea. She continues to use Trelegy with positive results. She uses her rescue inhaler 1-2 times a day. She continues to use Oxygen in lieu of CPAP. She is using a non-nicotine vaping device. LAST VISIT: Since the last visit the patient reports no significant medical events. Today the patient reports persisting exertional dyspnea but notes improvement since starting Trelegy. She reports a slight cough but no wheezing. She continues on oxygen at night and rarely during the day now. She is using her rescue inhaler twice daily primarily for exertion. She continues on generic Mucinex. She is using her incentive spirometer 2-3 times daily. A CXR dated 12/25/2022 was reviewed, revealed mild parenchymal densities of the lingula. The results were discussed with the patient. Jaylen Rosario DO [address], [place], [address], [place] [facility] 05/29/2023 16:46:43 12/11/2023 text/html This 67-year-old female returns to the office for ongoing management of COPD and sleep apnea. Since the last visit the patient reports no significant medical events or hospitalizations. Today the patient offers no acute respiratory complaints. Exertional dyspnea persists at baseline. Chronic pain persists. No nocturnal respiratory symptoms noted. Denies anosmia, fever, chills, chest pain, nausea, vomiting, diarrhea. She continues to use Trelegy daily with positive results. She uses her rescue inhaler once daily on average. She continues to use Oxygen in lieu of CPAP. Jaylen Rosario DO [address], [place], [address], [facility] 12/11/2023 16:20:41 01/11/2025 text/html This 69 year-old female returns to the office for the ongoing management of COPD and sleep apnea. The patient reports hospitalization at [facility] in September for pneumonia and notes a 60-pound weight loss since her last visit with dietary changes. She complains of an occasional morning cough with clear mucus but denies any shortness of breath or wheezing.The patient continues home oxygen at 2L nightly and as needed, uses her Albuterol inhaler 3 4 times daily, and requests Albuterol nebulizer treatments. She continues Trelegy 200 daily as directed with positive results, citing improved shortness of breath. She also continues Mucus Relief twice a day and uses her incentive spirometer. The patient reports resuming smoking over the past 2 3 months and is currently smoking 1/2 pack per day. Denies any n/v/d/f/c. Sophia Richey NP [address], [place], [address], [facility] 01/11/2025 12:24:43 OBGyn Episode No OBEpisode recorded.
--- OUTSIDE RECORDS SUMMARY | 2025-03-02 12:51 | XMS_ITS | Continuity of Care Document ---
Author Organization [facility] [place], [place] OFFICE Address [address] [place] [address] Care Team Providers Care Recruiting Specialist Name Role Phone HAIR VALDIVIA Primary Care Provider ALLI HENNESSY Quarrying Specialist KOFFI ELLIOTT Obgyn Nurse TITI YOUNG Manager Intermediate MARY MARTINEZ Primary Care Provider Assessment Encounter Date Assessment Date Assessment LastModified by Organization Details LastModified Time 01/11/2025 01/11/2025 Imaging Studies: *CXR (10/07/2022): mild [...] 2. Chronic hypoxemic respiratory failure *DME: Emma ([place]) 3. Hx pneumonia *CXR (12/25/2022): mild parenchymal [...] recognition software and or use of a certified medical technician. Variances in spelling and vocabulary are possible and unintentional. Not all errors are caught/corrected . Please notify the author if any discrepancies are noted or if the meaning of any statement is not clear. This is a summary discussion with the patient and in no way is intended to be a verbatum summation of everything discussed. We apologize for any inconvenience. [email or web address] Not available 01/11/2025 12:22:49 Plan of Treatment [...] mcg powder for inhalatio n [address], [place], [address], 01/11/2025 12:24:42 albuterol sulfate HFA 90 mcg/actua tion aerosol inhaler [address], [address], 01/11/2025 12:24:41 albuterol sulfate 2.5 mg/3 mL (0.083 %) solution for nebulizat ion [address], [address], 01/11/2025 12:24:41 guaifenes in ER 600 mg tablet, extended release 12 hr 2024 025 [facility], [address] [place] [address], [address], 01/11/2025 12:24:42 Patient TargetsNo targets recorded. Patient InstructionsNo instructions recorded. Reason for Referral None Reported. Results Created Date Observation Date Name Description Value Unit Range Abnormal Flag Note LastModifiedBy Organization Detail LastModifiedTime 01/24/20 25 01/23/2025 compl ete PFT* No observ ation record ed. [email or web address] [facility] [address] [place] [address], [address], 01/23/2025 13:09:09 Result Notes None recorded. Problems Name Problem SNOMED Code Status Onset Date Resolution Date Notes Provider Name and Address Organization Details Recorded Time Chronic obstructive pulmonary disease 84224988 Active 2022 Sophia Richey NP [address], [place], [address], [place] [facility] 3 16:53:00 Pneumonia 576423573 Active 2022 Sophia Richey NP [address], [place], [address], [place] [facility] 3 16:53:20 History of sepsis 7213597471028 00 Active 2022 Sophia Richey NP [address], [place], [address], [place] [facility] 3 16:53:27 Former heavy tobacco smoker 9536440960877 00 Active 2022 Sophia Richey NP [address], [place], [place], [address], [place] [facility] 3 16:53:34 History of SARS-CoV-2 6030537535595 [address] Active 2022 Sophia Richey NP [address], [place], [place], [address], [place] [facility] 3 16:53:44 Obstructive sleep apnea syndrome 82355318 Active 2022 Sophia Richey NP [address], [place], [place], [address], [place] [facility] 3 16:53:54 Dependence on supplementa l oxygen 254206586245 Active 2022 Sophia Richey NP [address], [place], [place], [address], [place] [facility] 3 16:54:04 Cough 55375000 Active 2022 Sophia Richey NP [address], [place], [place], [address], [place] [facility] 3 16:54:49 Dyspnea on exertion 24055545 Active 2022 Jaylen Rosario DO [address], [place], [place], [address], [place] [facility] 3 12:19:17 Chronic hypoxemic respiratory failure 072440831 Active 2023 Jaylen Rosario DO [address], [place], [place], [address], [place] [facility] 4 16:19:48 Problem Notes None recorded. Procedures Surgical History Date Name Laterality Status Provider Name and Address Organization Details Recorded Time Cholecystectomy completed allan maicol [place] - [facility] 12/11/2023 09:53:09 Cataract Surgery completed [facility] - [facility] 12/11/2023 09:53:17 total knee replacement completed [facility] - [facility] 12/11/2023 09:53:29 Imaging Results None recorded. Procedure Notes None recorded. Medical Equipment None Reported. Allergies Allergen ID Allergen Name Allergen Category Reaction Reaction Severity Criticality Documentation Date Start Date Code Code System Note Provider Name and Address Organization Details Recorded Time lamotrigi ne medicatio n Not available Not available Not available 12/08/2022 88015 RxNorm lynda sergio null, [place] [facility] 3 11:01:33 cilastati n Not available Not available Not available Not available 12/08/2022 2540 RxNorm lynda sergio null, [place] [facility] 3 11:01:42 Uloric medicatio n Not available Not available Not available 12/08/2022 82752 6 RxNorm lynda sergio null, [place] - [...] No t Available Vitals Date Recorded Body weight Body mass index (BMI) Body height Oxygen saturation Oxygen saturation in Arterial blood by Pulse oximetry Heart rate Respiratory rate Body temperature Systolic And Diastolic Provider Name and Address Organization Details Last Updated DateTime 5 99238.2 g 28.6 kg/m2 152.4 cm 92 % 92 % 94 /min 18 /min 97.4 [degF] 124/68 mm[Hg] allan DELEON - [facility] 10:50:46 Social History Question Answer Notes LastModified by Organizat ion Details LastModified Time Tobacco Smoking Status Current Every Day Smoker [place] [facility] 01/11/2025 10:47:14 Do You Have An Advance Directive? No [email or web address] Information n ot available 12/11/2023 Is Your Home Air Conditioned? Yes Information not available 12/11/2023 Are You Blind Or Do You Have Difficulty Seeing? No [email or web address] Information n ot available 12/08/2022 In The 14 Days Before Symptom Onset, Have You Had Close Contact With A Laboratory-confirm ed COVID-19 While That Case Was Ill? No [email or web address] Information n ot available 12/08/2022 In The 14 Days Before Symptom Onset, Have You Had Close Contact With A Person Who Is Under Investigation For COVID-19 While That Person Was Ill? No [email or web address] Information not available 12/08/2022 Have You Been To An Area Known To Be High Risk For COVID-19? No [email or web address] Information not available 12/08/2022 Are You Deaf Or Do You Have Serious Difficulty Hearing? No [email or web address] Information not available 12/08/2022 Where Do You Live? Apartment Inform ation not available 12/11/2023 Do You Have A Medical Power Of Ornithology Teacher? No Information not available 12/11/2023 What Was The Date Of Your Most Recent Tobacco Screening? 01/11/2025 [email or web address] Information not available 01/11/2025 What Is Your Current Pack Years? 30ormorepacky ears [email or web address] Information not available 12/08/2022 Do You Have Any Pets? Yes 1 Dog [email or web address] Information not available 12/11/2023 What Is Your Relationship Status? [email or web address] Information not available 12/11/2023 At What Age Did You Start Smoking Tobacco? 21 [email or web address] Information not available 12/08/2022 Are There Any Smokers In Your House? No [email or web address] Information not available 12/08/2022 How Much Tobacco Do You Smoke? 1 PPD [email or web address] Information not available 01/11/2025 Has Tobacco Cessation Counseling Been Provided? No Information not available 12/11/2023 How Many Years Have You Smoked Tobacco? 30 [email or web address] Information not available 12/08/2022 Have You Recently Traveled Abroad? No Information not available 12/08/2022 Are You Currently In School? No [email or web address] Information not available 12/08/2022 How Many Years Have You Used E-cigarettes Or Vape? 4 [email or web address] Information not available 05/29/2023 Sex: Unknown Functional Status Question Answer Note LastModified by Organizat ion Details LastModified Time Do you or have you ever used any other forms of tobacco or nicotine? Yes [email or web address] Information not available 12/08/2022 Do you or have you ever used smokeless tobacco? Never used smokeless tobacco [email or web address] Information not available 12/08/2022 Are you currently employed? No retired from [employer] Information not available 12/08/2022 Do you have difficulty doing errands alone? No [email or web address] Information not available 12/08/2022 Do you or have you ever used e-cigarettes or vape? Former user of electronic cigarettes [email or web address] Information not available 12/08/2022 Mental Status Question Answer Note LastModified by Organization D etails LastModified Time Do you have difficulty concentrating, remembering or making decisions? No [email or web address] Information no t available 12/08/2022 Family History Relationship Description Onset Age of this Age Resolved Age Notes LastModified by Organization Details LastModified Time Mother Arthritis [email or web address] Not availa ble 12/11/2023 09:52:07 Medical History No medical history recorded. Gynecological HistoryNo gynecological history recorded. Obstetrics History GPAL:G 0 P 0 0 0 0 Past Encounters Encounter ID Performer Location Encounter Start Date Encounter Closed Date Diagnosis/Indication Diagnosis SNOMED-CT Code Diagnosis ICD10 Code Diagnosis Note [id number] Jaylen Rosario DO [place] [facility] [address] [place] [address] [address] [place] [address] 01/11/2025 10:35:55 01/11/2025 13:22:22 Chronic obstructive pulmonary disease 05005470 J44.9 Chronic hy poxemic respiratory failure 401354836 J96.11 Obstructiv e sleep apnea syndrome 55669208 G47.33 Dyspnea on exertion 6084 5006 R06.09 Health Concerns Section Related Observation LastModified by Organization Detai ls LastModified Time None Recorded Concern Status LastModified by Organization Details LastModified Time None Recorded Payers Encounter Date Sequence Insurance Name Policy Number Policy Khoury Covered Member ID Khoury Member ID Guarantor Name 01/11/2025 1 [employer] (MEDICARE REPLACEMENT/ ADVANTAGE - PPO) [id number] Padmini Lew [id number] Padmini Lew Notes Date Note Type Note Provider Name and Address Organization Details Recorded Time 01/11/2025 text/html This 69 year-old female returns to the office for the ongoing management of COPD and sleep apnea. The patient reports hospitalization at [facility] in September for pneumonia and notes [...] Richey NP [address], [place], [address], [facility] 01/11/2025 12:24:43 OBGyn Episode No OBEpisode recorded.
--- OUTSIDE RECORDS SUMMARY | 2025-03-02 12:51 | XMS_ITS | Clinical Summary ---
Author Organization Healthcare Address [address] [place] [address] Care Team Providers Care Distribution Engineering Technologist Name Role Phone Buck Torres MD Primary Care Provider [phone] Medications dorzolamide-martha olol (Cosopt) 2-0.5 % ophthalmic solution Administer 1 drop into both eyes 2 (two) times a day. 20 mL 4 4 Active latanoprost (Xalatan) 0.005 % ophthalmic solution Administer 1 drop into both eyes every night. 7.5 mL 4 4 Active Social History Tobacco Use Types Packs/Day Years Used Date Smoking Tobacco: Never Assessed Comments Unknown Sex and Gender Information Value Date Recorded Sex Assigned at Not on file Legal Sex Female 8:13 PM EDT Gender Identity Not on file Sexual Orientation Not on file Plan of Treatment Health Maintenance Due Date Last Done Comments [facility]-Bone Density Scan 1955 [facility]-Depression Screening 1955 [facility]-Hepatitis C Screening 1955 [facility]-Medicare Annual Wellness (AWV) 1955 [facility]-/Child/Adol SDOH Screenings 1955 [facility]- SDOH Screenings 1974 [facility]-Adult SDOH Screenings 1974 CT Colonography 2001 Colonoscopy 2001 FIT-DNA 2001 FIT 2001 FOBT 2001 Sigmoidoscopy 2001 [facility]-Colorectal Cancer Screening 2001 [facility]-Breast Cancer Screening 2006 [id number] Vaccine ( season) 2024 12/13/2021, 06/30/2021, 10/08/2020, Additional history exists [facility]-Influenza Vaccine (#1) 2025 06/06/2013 [facility]-RSV Vaccine: 60+ Years or (1 - 1-dose 75+ series) 12/15/2031 [facility]-DTaP,Tdap,and Td Vaccines (2 - Td or Tdap) 10/09/2033 10/09/2023, 06/24/2004 [facility]-Cervical Cancer Screening Discontinued [facility]-HPV/Cotest Discontinued 06/08/2008 [facility]-Pap Smear Discontinued 06/08/2008 [facility]-Pneumococcal Vaccine: 50+ Years Completed 06/15/2023, 05/15/2022, 07/12/2020 [facility]-Zoster Vaccines Completed 01/15/2024, 4 HPV Vaccines Aged Out No longer eligi ble based on patient's age to complete this topic [facility]-HIB Vaccines Aged Out No longer e ligible based on patient's age to complete this topic [facility]-Hepatitis A Vaccines Aged Out No longer eligible based on patient's age to complete this topic [facility]-IPV Vaccines Aged Out No longer e ligible based on patient's age to complete this topic [facility]-Rotavirus Vaccines Aged Out No lo nger eligible based on patient's age to complete this topic Procedures Procedure Name Priority Date/Time Associated Diagnosis Comments CYTO DATA CONVERSION Routine 06/08/2008 12:00 AM EDT from Last 3 Months or Most Recently Relevant to Health Maintenance Results * Cytology (06/08/2008 12:00 AM EDT) Specimen from pancreas obtained by fine needle aspiration biopsy (specimen) 06/08/2008 06/08/2008 3:27 PM EDT Narrative [facility]QUEST - 06/12/2008 2:33 PM EDT [facility] MR #: [id number] [facility] [place] [place], [place] [address] 1955 (Age: 52) FW Collect Date: 06/08/2008 00:00 Receipt Date: 06/08/2008 15:27 Page 1 DEPARTMENT OF PATHOLOGY AND LABORATORY MEDICINE CYTOPATHOLOGY REPORT Email: [email or web address] ATTENDING MD/Practitioner: Elly Velasco MD Service: XRY Location: ENDO Reported: 06/12/2008 14:33 Collected: 06/08/2008 00:00 DIAGNOSIS ENDOSCOPIC ULTRASOUND GUIDED FNA, PANCREAS: FIBRINOPURULENT MATERIAL WITH DEBRIS-LADEN MACROPHAGES AND ABUNDANT PANCREATIC ACINAR TISSUE WITH BLAND DUCTAL EPITHELIUM. (SEE COMMENT) COMMENT The first passes yielded fibrinopurulent material and debris-laden macrophages consistent with abscess. Subsequent passes yielded pancreatic acinar and ductal tissue with no malignant features. The nature of the cystic lesion is unclear. Correlation with imaging studies, laboratory studies and clinical history is recommended to exclude sampling error. Electronically Signed Out New Ricketts MD PROCEDURES/ADDENDA GROSS DESCRIPTION: Needle rinse fluid for cytospin processing. CLINICAL INFORMATION: CLINICAL DIAGNOSIS 14mm unilocular cystic lesion, cyst fluid sent for analysis. ENDO/US/FNA performed by: Dr. Velasco Laboratory staff and/or housestaff attended procedure to prepare cytology aspirate slides. This service has been rendered in part by a resident. A pathologist has personally reviewed the slides/tissue and has rendered and is responsible for the diagnosis that appears on the report. SPECIMEN DESCRIPTION: A: FNA PANCREAS, ENDOSCOPIC ULTRASOUND GUIDED DIFF-QUIK x 7, PAP STAIN x 7, CYTOSPIN ICD: 577.8 PANCREATIC DISEASE NEC F: 38980, 76671 <CR>, 58507 ASP PROC A; 10896 ASP INTER SNOMED CODES: A; [id number] A resident has participated in this service. A pathologist has performed and is responsible for the reported pathologic evaluation. us Historical Provider LAB PATHOLOGY ORDERABLES Final Result SUNQUEST from Last 3 Months or Most Recently Relevant to Health Maintenance Insurance [employer] Care Teams Distribution Engineering Technologist Relationship Specialty Start Date End Date Buck Torres MD PCP - General 09/13/21
--- OUTSIDE RECORDS SUMMARY | 2025-03-02 13:51 | XMS_ITS | CCD ---
Author Organization Unknown Care Team Providers Care Powder Core Tester Name Role Phone Unavailable Primary Care Provider Unavailabl e Unavailable Chronic Care Management Unavaila ble Summary Purpose DataExchange Insurance Providers Payer name Policy type / Coverage type Covered alliance party ID Effective Begin Date Effective End Date [facility] [id number] Unknown Unknown Family History Family History data not found Medication Administered No Medication Administered data Reason For Visit No Reason For Visit data Medical Equipment No Medical Equipment data Advance Directives No Advance Directive data
--- OUTSIDE RECORDS SUMMARY | 2025-03-02 13:51 | XMS_ITS | CCD ---
Author Organization Unknown Care Team Providers Care Elder Counselor Name Role Phone Unavailable Primary Care Provider Unavailabl e Unavailable Chronic Care Management Unavaila ble Summary Purpose DataExchange Insurance Providers Payer name Policy type / Coverage type Covered constitution party ID Effective Begin Date Effective End Date [facility] [id number] Unknown Unknown Family History Family History data not found Medication Administered No Medication Administered data Reason For Visit No Reason For Visit data Medical Equipment No Medical Equipment data Advance Directives No Advance Directive data
[2025-03-03 09:52] LABS: Hepatitis B Surface Antigen Negative (Negative)
== END 2025-03-01 23:59 | disposition home or self-care (01) ==
LOC: LAB.DROPOF 03-02 12:49
PROVIDERS: PCP Family Medicine; Visit Provider Family Medicine
DX: Z11.59 Encounter for screening for other viral diseases (principal); E11.9 Type 2 diabetes mellitus without complications
CPT/HCPCS: 83036; 87340